=== PATIENT | female | born 1955 | race Caucasian/White ===

== ENCOUNTER 2018-12-25 15:21 | Inpatient (IN) | payer BC ==
[~2018-12-25] VITALS: Ht 162.6 cm; Wt 51.4 kg
[2018-12-25] MEDS ORDERED: CEFEPIME 2GM/50 ML (PMX) 50 ML IVPB STA (15:51)
[2018-12-25] MEDS ORDERED: SODIUM CHLORIDE 0.9% 1L BAG IV* STA (15:51)
[2018-12-25] MEDS ORDERED: VANCOMYCIN 1 GM (PMX) 250 ML IVPB ONE (16:00)
[2018-12-25] MEDS ORDERED: ASPIRIN 81 MG TAB PO ONE (16:30)
[2018-12-25] MEDS ORDERED: ACET325S GTB (16:35)
[2018-12-25] MEDS ORDERED: ALLO100T GTB (16:36)
[2018-12-25] MEDS ORDERED: ASPI-817 GTB (16:36)
[2018-12-25] MEDS ORDERED: DOCU-144 GTB (16:37)
[2018-12-25] MEDS ORDERED: CARV6.25 GTB (16:38)
[2018-12-25] MEDS ORDERED: DIGO125T19 GTB (16:39)
[2018-12-25] MEDS ORDERED: FURO-110 GTB (16:39)
[2018-12-25] MEDS ORDERED: MAGN400O19 GTB (16:40)
[2018-12-25] MEDS ORDERED: ATOR-2 GTB (16:40)
[2018-12-25] MEDS ORDERED: NITR0.4T32 SL (16:41)
[2018-12-25] MEDS ORDERED: HYDR-4011 GTB (16:42)
[2018-12-25] MEDS ORDERED: FAMO20TA18 GTB (16:42)
[2018-12-25] MEDS ORDERED: VIT500LI GTB (16:44)
[2018-12-25] MEDS ORDERED: LISI-523 GTB (16:45)
[2018-12-25] MEDS ORDERED: NOVO3I SC (16:48)
--- NOTE | 2018-12-25 17:34 | ERD ---
ER Documentation Chief Complaint Chief Complaint FROM [facility] FOR EVAL OF PRESSURE ULCER BUTTOCKS HPI 63-year-old female with prior stroke, left-sided hemiparesis who is a and O x2 at baseline presents from [facility] because of an evaluation of a pressure ulcer on her buttocks. It appears she is on antibiotics and the wound is not healing. The family is concerned that she was not getting appropriate care. The patient herself only describes some pain to her buttock. She denies any chest pain or shortness of breath and the remainder of HPI is very limited. The patient does not arrive with POLST form. No family immediately available. ROS Limited as above. Medications Home Meds Reported Medications Insulin Aspart* (Novolog Insulin Pen*) 100 Unit/Ml Soln, 0 SC .SLIDING SCALE AC, EA IF BS 200-250=2 UNITS, 251-300=4 UNITS, 301-350=6 UNITS, 351-400=8 UNITS, 401-450=10 UNITS, 451-500=12 UNITS AND CALL MD. 12/25/18 Lisinopril* (Zestril*) 5 Mg Tablet, 5 MG GTB DAILY, #30 TAB HOLD FOR SBP<110 OR VT<60 12/25/18 Vit C-Ascorbate Ca-Ascorb Sod (Vitamin C) 500 Mg/15 Ml Liquid, 5 ML GTB DAILY, ML 12/25/18 Famotidine* (Famotidine*) 20 Mg Tablet, 20 MG GTB QAM, #30 TAB 12/25/18 Hydrocodone/Acetaminophen ([place] 5-325 Tablet) 1 Each Tablet, 1 EACH GTB Q6H PRN for PAIN 6-10/10, TAB 12/25/18 Nitroglycerin* (Nitroglycerin* SL) 0.4 Mg Tab.subl, 0.4 MG SL Q5MIN PRN for CHEST PAIN, BOTTLE 12/25/18 Magnesium Hydroxide* (Milk Of Magnesia*) 400 Mg/5 Ml Oral.susp, 30 ML GTB Q24H for CONSTIPATION, ML 12/25/18 Atorvastatin* (Atorvastatin*) 80 Mg Tablet, 80 MG GTB QHS, #30 TAB 12/25/18 Furosemide* (Lasix*) 20 Mg Tablet, 20 MG GTB BID, TAB 12/25/18 Digoxin* (Digox*) 125 Mcg Tablet, 0.125 MG GTB DAILY, TAB HOLD FOR HR<60 12/25/18 Carvedilol* (Coreg*) 6.25 Mg Tablet, 6.25 MG GTB BID, #60 TAB HOLD FOR SBP<110 OR VT<60 12/25/18 Docusate Sodium* (Colace*) 100 Mg Capsule, 100 MG GTB Q12H PRN for CONSTIPATION, #30 CAP 12/25/18 Aspirin* (Aspirin* EC) 81 Mg Tablet.dr, 81 MG GTB DAILY, TAB 12/25/18 Allopurinol* (Allopurinol*) 100 Mg Tablet, 100 MG GTB BID, TAB 12/25/18 Acetaminophen* (Acetaminophen* Susp) 325 Mg/10.15 Ml Solution, 20 ML GTB Q4H PRN for PAIN LEVEL 1-5, ML 12/25/18 Allergies Allergies: Coded Allergies: No Known Allergy (Unverified , 12/25/18) PMhx/Soc Smoking Status: Never smoker FmHx Family History: No diabetes Physical Exam Vitals Vital Signs Date Temp Pulse Resp B/P (MAP) Pulse Ox O2 O2 Flow FiO2 Time Delivery Rate 12/25/18 100 22 120/67 97 Room Air 17:48 (84) 12/25/18 Nasal 2 16:23 Cannula 12/25/18 97.6 106 20 112/58 99 15:27 (76) Physical Exam General: Minimally verbal with evidence of left-sided hemiparesis that appears to be baseline Head: Normocephalic, atraumatic. Eyes: Pupils equally reactive, EOM intact ENT: Moist mucous membranes Neck: Supple, no lymphadenopathy Respiratory: Lungs clear bilaterally, no distress Cardiovascular: RRR, no murmurs, rubs, or gallops Abdominal: Soft, non-tender, non-distended, no peritoneal signs : Manager Project exam reveals a stage IV, golf ball sized sacral decubitus ulcer, base of the wound is well-appearing without drainage or discharge MSK: No edema, no unilateral swelling Neurologic: Alert and oriented, as noted above with left-sided hemiparesis Skin: As noted above Psych: Normal mood Result Diagram: 12/25/18 1607 12/25/18 1607 Results 24 hrs Laboratory Tests Test 12/25/18 16:07 12/25/18 16:15 White Blood Count 10.5 10^3/ul Red Blood Count 3.40 10^6/ul Hemoglobin 9.9 g/dl Hematocrit 31.0 % Mean Corpuscular Volume 91.2 fl Mean Corpuscular Hemoglobin 29.1 pg Mean Corpuscular Hemoglobin Concent 31.9 g/dl Red Cell Distribution Width 18.4 % Platelet Count 338 10^3/UL Mean Platelet Volume 11.1 fl Immature Granulocytes % 0.500 % Neutrophils % 58.0 % Lymphocytes % 29.9 % Monocytes % 8.4 % Eosinophils % 2.8 % Basophils % 0.4 % Nucleated Red Blood Cells % 0.0 /100WBC Immature Granulocytes # 0.050 10^3/ul Neutrophils # 6.1 10^3/ul Lymphocytes # 3.1 10^3/ul Monocytes # 0.9 10^3/ul Eosinophils # 0.3 10^3/ul Basophils # 0.0 10^3/ul Nucleated Red Blood Cells # 0.0 10^3/ul Prothrombin Time 13.1 Sec Prothrombin Time Ratio 1.0 INR International Normalized Ratio 0.98 Activated Partial Thromboplast Time 27.2 Sec Urine Color AP Urine Clarity CLOUDY Urine pH 6.0 Urine Specific [place] 1.019 Urine Ketones NEGATIVE mg/dL Urine Nitrite NEGATIVE mg/dL Urine Bilirubin NEGATIVE mg/dL Urine Urobilinogen 1+ mg/dL Urine Leukocyte Esterase 3+ Seth/ul Urine Microscopic RBC 34 /HPF Urine Microscopic WBC > 182 /HPF Urine Bacteria FEW /HPF Urine Hemoglobin 1+ mg/dL Urine Glucose NEGATIVE mg/dL Urine Total Protein 1+ mg/dl Sodium Level 142 mmol/L Potassium Level 3.4 mmol/L Chloride Level 96 mmol/L Carbon Dioxide Level 37 mmol/L Anion Gap 9 Blood Urea Nitrogen 40 mg/dl Creatinine 0.61 mg/dl Est Glomerular Filtrat Rate mL/min > 60 mL/min Glucose Level 142 mg/dl Calcium Level 10.0 mg/dl Troponin I 0.026 ng/ml C-Reactive Protein 3.2 mg/dl POC Venous Lactate 2.3 mmol/L Current Medications Medications Dose Sig/Erica Start Time Status Last (Trade) Ordered Route PRN Stop Time Admin Dose Reason Admin Sodium 1,800 ml BOLUS OVER 2 12/25/18 DC 12/25/18 Chloride HOURS STAT 15:51 16:25 (NS) IV* 12/25/18 15:53 Cefepime HCl 50 ml @ ONCE STAT 12/25/18 DC 12/25/18 100 mls/hr IVPB 15:51 16:30 12/25/18 16:20 Vancomycin 250 ml @ ONCE ONCE 12/25/18 DC 12/25/18 HCl 125 mls/hr IVPB 16:00 17:42 12/25/18 17:59 Aspirin 324 mg ONCE ONCE 12/25/18 DC 12/25/18 (Aspirin) PO 16:30 16:25 12/25/18 16:31 Enoxaparin 60 mg ONCE SC 12/25/18 Sodium 18:00 (Lovenox) Procedures/MDM EKG, MONITORS, & DIAGNOSTIC IMAGING: EKG #1 EKG: I reviewed and interpreted a 12-lead EKG. Rhythm: Normal sinus rhythm ST Changes: ST segment elevation noted in lead III, aVR, ST segment depression in 1 and aVL T waves: No contiguous T wave inversions Impression: Concerning ST segment changes for possible MT EKG #2 EKG: I reviewed and interpreted a 12-lead EKG. Rhythm: Normal sinus rhythm ST Changes: ST segment elevation noted in lead III, aVR, ST segment depression in 1 and aVL T waves: No contiguous T wave inversions Impression: Concerning ST segment changes for possible MT Chest x-ray: I reviewed and interpreted a 1 view of the chest Mediastinum: No enlargement Cardiac silhouette: No cardiomegaly Airspace: Clear lung rodas bilaterally without evidence of pneumothorax Bones: No evidence of fracture LAB INTERPRETATION: I reviewed the laboratory testing and it shows indeterminate troponin, elevated ESR and CRP slightly elevated lactic acid MEDICAL DECISION MAKING: The patient presents for evaluation of sacral decubitus ulcer, this raises a concern for possible osteomyelitis. Patient does have slight tachycardia, lactic acid is slightly elevated, sepsis screening initiated. It should be noted that the patient does not technically meet 2 out of 4 Sirs criteria in the emergency room setting. Therefore this is not consistent with sepsis. Lactic acid elevation possibly secondary to dehydration. IV fluids provided. The patient was however treated as sepsis with a 30/kg bolus of saline, broad-spectrum antibiotics. Repeat lactic acid pending. Blood cultures taken prior to antibiotics. The patient's initial EKG was abnormal and in the right setting very concerning for ST elevation myocardial infarction. The patient was reassessed multiple times and each time she denied any chest pain. An emergent phone call was made to Dr. Lazaro, on-call tax expert. We discussed the case and he reviewed EKGs. Given that the patient is hemodynamically stable with no active chest pain and Q waves on EKG Dr. Lazaro feels that the patient does not need to be emergently taken to the [facility]. Medical management will be appropriate. No old EKGs for comparisons. We did discuss Lovenox and he would agree. Troponin initially indeterminant. Dr. Lazaro was notified. Initial time of notification of Dr. Lazaro is 4:08 PM ER COURSE: * Fluids, blood cultures and antibiotics as discussed above * Aspirin per G-tube given EKG findings * Patient remains chest pain-free. Hemodynamics improving. * Lovenox provided. No absolute contraindications * Patient will be admitted to telemetry for further management. CONSULTATION: Cardiology: Dr. Lazaro DISPOSITION PLAN: Telemetry admission for management of decubitus ulcer, dehydration, lactic acidosis and abnormal EKG Accepting care team and consultations: I discussed the current laboratory data, diagnostic imaging and emergency care provided. Admitting team: Panel team notified via [employer] Admitting team indication: Insurance directed Departure Diagnosis: Primary Impression: Sacral decubitus ulcer Pressure injury stage: unspecified pressure injury stage Qualified Codes: L89.159 - Pressure ulcer of sacral region, unspecified stage Additional Impressions: Osteomyelitis Osteomyelitis type: unspecified type Osteomyelitis location: other site Q ualified Codes: M86.9 - Osteomyelitis, unspecified Lactic acidosis Dehydration, mild Abnormal EKG Condition: JERICA Siddiqui MD Dec 25, 2018 17:34
[2018-12-25] MEDS ORDERED: ENOXAPARIN 80 MG/0.8 ML SYG SC SCH (18:00)
[2018-12-25] MEDS ORDERED: ACETAMINOPHEN 650MG/20.3ML CUP GTB PRN (18:30)
[2018-12-25] MEDS ORDERED: ALBUTEROL/IPRATROPIUM (NEB) 3 ML AMP HHN PRN (18:30)
[2018-12-25] MEDS ORDERED: hydrALAzine 20 MG INJ IV PRN (18:30)
[2018-12-25] MEDS ORDERED: ONDANSETRON 4 MG INJ IV PRN ×2 (18:30)
[2018-12-25] MEDS ORDERED: NACL 0.9% 3 ML SYG IV SCH (18:30)
[2018-12-25] MEDS ORDERED: LORAZEPAM 2 MG INJ IV PRN (18:30)
[2018-12-25] MEDS ORDERED: HYDROCODONE/APAP (5/325) TAB PO PRN (18:30)
[2018-12-25] MEDS ORDERED: DOCUSATE SODIUM 100 MG CAP PO PRN (18:30)
[2018-12-25] MEDS ORDERED: NITROGLYCERIN (SL) 0.4 MG TAB SL PRN (18:30)
[2018-12-25] MEDS ORDERED: MAGNESIUM HYDROXIDE 30ML CUP PO PRN (18:30)
[2018-12-25] MEDS ORDERED: ACETAMINOPHEN 325 MG TAB PO PRN ×2 (18:30)
[2018-12-25] MEDS ORDERED: morphine 2 MG INJ IV PRN (18:30)
[2018-12-25] MEDS: MAGNESIUM HYDROXIDE 30ML CUP GTB SCH (18:30)
--- NOTE | 2018-12-25 19:32 | HP ---
DATE OF ADMISSION: 12/25/2018 CHIEF COMPLAINT: Sent from SNF for evaluation of buttock ulcers. HISTORY OF PRESENT ILLNESS: A 63-year-old female with past medical history based on records of prior stroke with left-sided weakness symptoms, likely high cholesterol, likely hypertension, likely diabe josh, history of G-tube placement, who was sent from [facility] facility today because of pressur e ulcer on her buttocks. Most of the information is obtained from the ER documentation as the patien t is unable to provide full HPI at this time. It was noted, however, that the family was concerned t he patient was not getting the proper care at the halfway facility and she apparently had bee n on antibiotics for the pressure ulcer wound in her buttocks, but the wound does not appear to be he aling. The patient did describe some positive pain symptoms in her buttock area. No chest pain or s hortness of breath. That is the full extent of the review of systems that could be obtained at this time. When the patient arrived, the white blood cell count was normal, but the ESR was elevated at 1 30. The potassium was a little bit low at 3.4 and patient did receive antibiotics in the ER, the [facility] ient also had an EKG performed that showed signs of possible ST elevation myocardial infarction and a call was made out to the on-call core checker, who recommended medical management at this time as the troponin is negative and the patient does not have any chest pain symptoms. The [facility] ient did get a dose of Lovenox 1 mg/kg as well. PAST MEDICAL HISTORY: As above. ALLERGIES: NO KNOWN DRUG ALLERGIES. HOME MEDICATIONS: 1. Atorvastatin 80 mg at bedtime. 2. Coreg 6.25 mg b.i.d. 3. Digoxin 0.125 mg daily. 4. Zestril 5 mg daily. 5. Nitroglycerin 0.4 mg sublingual every 5 minutes p.r.n. 6. Tylenol p.r.n. 7. Aspirin 81 mg daily. 8. [place] q.6 hours p.r.n. 9. Lasix 20 mg b.i.d. 10. Colace 100 mg q.12 hours p.r.n. 11. Famotidine 20 mg q.a.m. 12. Milk of magnesia q.24 hours p.r.n. 13. Aspart sliding scale insulin. 14. Vitamin C 5 mL daily. 15. Allopurinol 100 mg b.i.d. PAST SURGICAL HISTORY: History of G-tube placement. SOCIAL HISTORY: Negative for smoking or drinking, or IV drug abuse. FAMILY HISTORY: Noncontributory. PHYSICAL EXAMINATION: VITAL SIGNS: T-max 97.6, pulse 100 to 106, respirations 20 to 22, blood pressure is 120/67, satting at 97% room air. GENERAL: Patient is lying in bed, family members at the bedside, minimally verbally responsive. HEENT: Pupils are equal, round and reactive to light. Extraocular muscles intact. NECK: Supple, no thyromegaly. LUNGS: Clear to auscultation bilaterally. CARDIOVASCULAR: S1, S2 heard. No rubs or gallops. ABDOMEN: Soft, nontender and nondistended. G-tube in place. Normal bowel sounds. No rebound or gu arding. MUSCULOSKELETAL: No lower extremity edema bilaterally. NEUROLOGIC: She has got left-sided hemiparesis secondary to her stroke in the past. GENITOURINARY: There appears to be stage IV sacral decubitus ulcer. No drainage. LABORATORY DATA: CBC is normal. Basic metabolic panel is normal except the potassium 3.4. Venous l actic acid is 2.3 initially, repeat is 1.4. Troponin is 0.026, CRP is 3.2. UA shows 3+ leukocyte es terase positive. The patient had a chest x-ray, shows calcified aorta consistent with atheroscleroti c disease, mild left lower lobe linear atelectatic changes. ASSESSMENT AND PLAN: A 63-year-old female coming in with stage IV decubitus buttock ulcer that needs wound treatment, posi tive urinary tract infection, and possible signs of ST elevation myocardial infarction. 1. Positive sacral decubitus ulcer. We will get wound care consult. Continue broad spectrum antibi otics, may need to rule out for osteomyelitis. Given the staging of the ulcer. Consider imaging dung dies including MRI or x-ray of this area. Check TSH, A1c, lipid panel. Continue broad spectrum anti biotics, Tylenol p.r.n. pain and fevers. 2. Urinary tract infection. Again, we will continue broad spectrum antibiotics, low-dose IV fluids, Tylenol p.r.n. pain and fevers. Follow up final culture results. 3. Questionable ST elevation myocardial infarction. Again, this was on the EKG in the ER again per cardiology team. Medical management for now including Lovenox 1 mg/kg IV x1. We will trend her trop onins, rule her out officially for acute coronary syndrome. First troponin is negative. Follow up s econd and third. Consider 2D echocardiogram as well. 4. History of diabetes. Follow up A1c. Continue sliding scale insulin. 5. History of hypertension. Blood pressure stable. Continue current blood pressure medications. 6. History of high cholesterol. Follow up lipid panel. Continue statin. 7. GI prophylaxis, Pepcid via G-tube. 8. Deep venous thrombosis prophylaxis. Again, she did receive 1 dose of Lovenox after SCDs unless o therwise indicated. Consider speech therapy consult, PT and OT consults as well. Dictated By: MARI PRIEST/MARCELINO Conf#: [id number] DID#: [id number]
[2018-12-25] MEDS: ALLOPURINOL 100 MG TAB GTB SCH (23:30)
[2018-12-25] MEDS: ATORVASTATIN 80 MG TAB GTB SCH (23:30)
[2018-12-25] MEDS: FUROSEMIDE 20 MG TAB GTB SCH (23:30)
[2018-12-26] VITALS (13 sets, daily range): BP systolic 97–121; BP diastolic 52–72; PULSE 95–113; RESP 16–22; Ht 162.6 cm; Wt 51.4 kg
[2018-12-26] MEDS: PIPER-TAZO 3.375 GM IV (PMX) 100 ML IVPB SCH ×4 (00:47→17:38)
[2018-12-26] MEDS: ALLOPURINOL 100 MG TAB GTB SCH ×2 (09:36→21:32)
[2018-12-26] MEDS: LISINOPRIL 5 MG TAB GTB SCH (09:36)
[2018-12-26] MEDS: FAMOTIDINE 20 MG TAB GTB SCH (09:36)
[2018-12-26] MEDS: FUROSEMIDE 20 MG TAB GTB SCH ×2 (09:37→21:32)
--- NOTE | 2018-12-26 10:25 | PN ---
Date/Time of Note Date/Time of Note DATE: 12/26/18 TIME: 10:11 Assessment/Plan VTE Prophylaxis SCD applied (from Nsg): No SCD contraindicated: other Pharmacological prophylaxis: LMWH Lines/Catheters IV Catheter Type (from Nrsg): Saline Lock Urinary Cath still in place: Yes Reason Cath still needed: urinary retention Assessment/Plan Hospital Course S: Patient had no acute events overnight, but the troponin came back positive. Denies chest pain. O: VS- see below PHYSICAL EXAMINATION: GENERAL: lying in bed, minimally verbally responsive. HEENT: Pupils are equal, round and reactive to light. Extraocular muscles intact. NECK: Supple, no thyromegaly. LUNGS: Clear to auscultation bilaterally. CARDIOVASCULAR: S1, S2 heard. No rubs or gallops. ABDOMEN: Soft, nontender and nondistended. G-tube in place. Normal bowel sounds. No rebound or guarding. MUSCULOSKELETAL: No lower extremity edema bilaterally. NEUROLOGIC: She has got left-sided hemiparesis secondary to her stroke in the past. GENITOURINARY: + stage IV sacral decubitus ulcer. No drainage. ASSESSMENT AND PLAN: 63-year-old female coming in with stage IV decubitus buttock ulcer that needs wound treatment, positive urinary tract infection, and possible signs of ST elevation myocardial infarction. 1. Positive sacral decubitus ulcer-no drainage was noted on admission. - Awaiting wound care consult. - Continue broad spectrum antibiotics, may need to rule out for osteomyelit is. - Given the staging of the ulcer - consider imaging studies including MRI or x-ray of this area. Check TSH, A1c, lipid panel. Continue broad spectrum antibiotics, Tylenol p.r.n. pain and fevers. 2. Urinary tract infection: + UA found on admission. - Again, we will continue broad spectrum antibiotics, low-dose IV fluids, Tylenol p.r.n. pain and fevers. - Follow up final culture results. 3. Possible ST elevation myocardial infarction. Again, this was seen on the EKG on admission. Patient denied chest pain then and now per medical management for now including Lovenox 1 mg/kg IV x1. First 2 troponins were negative but third troponin is elevated. -We will continue to trend the troponins and obtain official cardiology consult -Start Lovenox 1 mg/kg subcu twice daily and follow-up echocardiogram results 4. History of diabetes- A1c = 6.5. Continue sliding scale insulin. 5. History of hypertension. Blood pressure stable. - Continue current blood pressure medications. 6. History of high cholesterol. - Follow up lipid panel. - Continue statin. 7. GI prophylaxis- Pepcid via G-tube. 8. Deep venous thrombosis prophylaxis-Lovenox Result Diagram: 12/26/18 0520 12/26/18 0520 Results 24hrs Laboratory Tests Test 12/25/18 16:07 12/25/18 16:15 12/25/18 16:30 12/25/18 16:31 White Blood Count 10.5 Red Blood Count 3.40 L Hemoglobin 9.9 L Hematocrit 31.0 L Mean Corpuscular 91.2 Volume Mean Corpuscular 29.1 Hemoglobin Mean Corpuscular 31.9 L Hemoglobin Concent Red Cell 18.4 H Distribution Width Platelet Count 338 Mean Platelet Volume 11.1 H Immature 0.500 H Granulocytes % Neutrophils % 58.0 Lymphocytes % 29.9 Monocytes % 8.4 Eosinophils % 2.8 Basophils % 0.4 Nucleated Red Blood 0.0 Cells % Immature 0.050 H Granulocytes # Neutrophils # 6.1 Lymphocytes # 3.1 H Monocytes # 0.9 Eosinophils # 0.3 Basophils # 0.0 Nucleated Red Blood 0.0 Cells # Prothrombin Time 13.1 Prothrombin Time 1.0 Ratio INR International 0.98 Normalized Ratio Activated 27.2 Partial Thromboplast Time Urine Color AP Urine Clarity CLOUDY A Urine pH 6.0 Urine Specific 1.019 [place] Urine Ketones NEGATIVE Urine Nitrite NEGATIVE Urine Bilirubin NEGATIVE Urine Urobilinogen 1+ H Urine Leukocyte 3+ H Esterase Urine Microscopic 34 H RBC Urine Microscopic > 182 H WBC Urine Bacteria FEW A Urine Hemoglobin 1+ H Urine Glucose NEGATIVE Urine Total Protein 1+ H Sodium Level 142 Potassium Level 3.4 L Chloride Level 96 L Carbon Dioxide Level 37 H Anion Gap 9 Blood Urea Nitrogen 40 H Creatinine 0.61 Est Glomerular > 60 Filtrat Rate mL/min Glucose Level 142 Calcium Level 10.0 Troponin I 0.026 C-Reactive Protein 3.2 H POC Venous Lactate 2.3 *H Free Thyroxine 2.25 Erythrocyte 130 H Sedimentation Rate Test 12/25/18 18:28 12/25/18 20:44 12/25/18 22:44 12/26/18 05:20 POC Venous Lactate 1.4 Lactic Acid Level 1.8 Creatine Kinase 39 39 Creatine Kinase 12.3 12.4 Index Creatinine Kinase MB 4.79 H 4.83 H (Mass) Troponin I 0.109 0.282 *H White Blood Count 7.8 # Red Blood Count 2.89 L Hemoglobin 8.3 L Hematocrit 26.5 L Mean Corpuscular 91.7 Volume Mean Corpuscular 28.7 L Hemoglobin Mean Corpuscular 31.3 L Hemoglobin Concent Red Cell 17.9 H Distribution Width Platelet Count 268 # Mean Platelet Volume 10.4 Immature 0.300 Granulocytes % Neutrophils % 55.0 Lymphocytes % 31.4 Monocytes % 8.2 Eosinophils % 4.6 Basophils % 0.5 Nucleated Red Blood 0.0 Cells % Immature 0.020 Granulocytes # Neutrophils # 4.3 Lymphocytes # 2.4 Monocytes # 0.6 Eosinophils # 0.4 Basophils # 0.0 Nucleated Red Blood 0.0 Cells # Sodium Level 142 Potassium Level 3.4 L Chloride Level 106 # Carbon Dioxide Level 31 Anion Gap 5 Blood Urea Nitrogen 26 #H Creatinine 0.52 Est Glomerular > 60 Filtrat Rate mL/min Glucose Level 107 Hemoglobin A1c 6.5 H Calcium Level 8.8 Phosphorus Level 4.0 Magnesium Level 2.0 Triglycerides Level 522 H Cholesterol Level 150 LDL Cholesterol, 26 Calculated HDL Cholesterol 20 L Cholesterol/HDL 7.5 Ratio Thyroid Stimulating 2.840 Hormone (TSH) Exam/Review of Systems Exam Vitals Vital Signs Date Temp Pulse Resp B/P (MAP) Pulse Ox O2 O2 Flow FiO2 Time Delivery Rate 12/26/18 100 08:31 12/26/18 98.9 18 115/66 98 07:11 (82) 12/26/18 2.0 06:05 12/26/18 Nasal 01:00 Cannula Intake and Output 12/25/18 12/25/18 12/26/18 1515:00 23:00 07:00 IntakeIntake Total 100 ml BalanceBalance 100 ml Results Results 24hrs Laboratory Tests Test 12/25/18 16:07 12/25/18 16:15 12/25/18 16:30 12/25/18 16:31 White Blood Count 10.5 Red Blood Count 3.40 L Hemoglobin 9.9 L Hematocrit 31.0 L Mean Corpuscular 91.2 Volume Mean Corpuscular 29.1 Hemoglobin Mean Corpuscular 31.9 L Hemoglobin Concent Red Cell 18.4 H Distribution Width Platelet Count 338 Mean Platelet Volume 11.1 H Immature 0.500 H Granulocytes % Neutrophils % 58.0 Lymphocytes % 29.9 Monocytes % 8.4 Eosinophils % 2.8 Basophils % 0.4 Nucleated Red Blood 0.0 Cells % Immature 0.050 H Granulocytes # Neutrophils # 6.1 Lymphocytes # 3.1 H Monocytes # 0.9 Eosinophils # 0.3 Basophils # 0.0 Nucleated Red Blood 0.0 Cells # Prothrombin Time 13.1 Prothrombin Time 1.0 Ratio INR International 0.98 Normalized Ratio Activated 27.2 Partial Thromboplast Time Urine Color AP Urine Clarity CLOUDY A Urine pH 6.0 Urine Specific 1.019 [place] Urine Ketones NEGATIVE Urine Nitrite NEGATIVE Urine Bilirubin NEGATIVE Urine Urobilinogen 1+ H Urine Leukocyte 3+ H Esterase Urine Microscopic 34 H RBC Urine Microscopic > 182 H WBC Urine Bacteria FEW A Urine Hemoglobin 1+ H Urine Glucose NEGATIVE Urine Total Protein 1+ H Sodium Level 142 Potassium Level 3.4 L Chloride Level 96 L Carbon Dioxide Level 37 H Anion Gap 9 Blood Urea Nitrogen 40 H Creatinine 0.61 Est Glomerular > 60 Filtrat Rate mL/min Glucose Level 142 Calcium Level 10.0 Troponin I 0.026 C-Reactive Protein 3.2 H POC Venous Lactate 2.3 *H Free Thyroxine 2.25 Erythrocyte 130 H Sedimentation Rate Test 12/25/18 18:28 12/25/18 20:44 12/25/18 22:44 12/26/18 05:20 POC Venous Lactate 1.4 Lactic Acid Level 1.8 Creatine Kinase 39 39 Creatine Kinase 12.3 12.4 Index Creatinine Kinase MB 4.79 H 4.83 H (Mass) Troponin I 0.109 0.282 *H White Blood Count 7.8 # Red Blood Count 2.89 L Hemoglobin 8.3 L Hematocrit 26.5 L Mean Corpuscular 91.7 Volume Mean Corpuscular 28.7 L Hemoglobin Mean Corpuscular 31.3 L Hemoglobin Concent Red Cell 17.9 H Distribution Width Platelet Count 268 # Mean Platelet Volume 10.4 Immature 0.300 Granulocytes % Neutrophils % 55.0 Lymphocytes % 31.4 Monocytes % 8.2 Eosinophils % 4.6 Basophils % 0.5 Nucleated Red Blood 0.0 Cells % Immature 0.020 Granulocytes # Neutrophils # 4.3 Lymphocytes # 2.4 Monocytes # 0.6 Eosinophils # 0.4 Basophils # 0.0 Nucleated Red Blood 0.0 Cells # Sodium Level 142 Potassium Level 3.4 L Chloride Level 106 # Carbon Dioxide Level 31 Anion Gap 5 Blood Urea Nitrogen 26 #H Creatinine 0.52 Est Glomerular > 60 Filtrat Rate mL/min Glucose Level 107 Hemoglobin A1c 6.5 H Calcium Level 8.8 Phosphorus Level 4.0 Magnesium Level 2.0 Triglycerides Level 522 H Cholesterol Level 150 LDL Cholesterol, 26 Calculated HDL Cholesterol 20 L Cholesterol/HDL 7.5 Ratio Thyroid Stimulating 2.840 Hormone (TSH) Medications Medication Current Medications Enoxaparin Sodium (Lovenox) 60 mg ONCE SC Last administered on 12/25/18at 18:00; Admin Dose 60 MG; Start 12/25/18 at 18:00 Ondansetron HCl (Zofran Inj) 4 mg ER BRIDGE PRN IV NAUSEA/VOMITING; Start 12/25/18 at 18:30; Stop 12/26/18 at 18:29 Acetaminophen (Tylenol Tab) 650 mg ER BRIDGE PRN PO .MILD PAIN 1-3 OR TEMP; Start 12/25/18 at 18:30; Stop 12/26/18 at 18:29 IV Flush (NS 3 ml) 3 ml PER PROTOCOL IV ; Start 12/25/18 at 18:30 Ondansetron HCl (Zofran Inj) 4 mg Q6H PRN IV NAUSEA/VOMITING; Start 12/25/18 at 18:30 Acetaminophen (Tylenol Tab) 650 mg Q6H PRN PO .PAIN 1-3 OR TEMP; Start 12/25/18 at 18:30 Acetaminophen/ Hydrocodone Bitart ([place] (5/325)) 1 tab Q6H PRN PO .MOD PAIN 4- 6 Last administered on 12/25/18at 19:35; Admin Dose 1 TAB; Start 12/25/18 at 18:30 Morphine Sulfate (morphine) 2 mg Q4H PRN IV .SEVERE PAIN 7-10; Start 12/25/18 at 18:30 Docusate Sodium (Colace) 100 mg Q12H PRN PO .CONSTIPATION; Start 12/25/18 at 18:30 Magnesium Hydroxide (Milk Of Mag) 30 ml DAILY PRN PO .CONSTIPATION; Start 12/25/18 at 18:30 Lorazepam (Ativan) 0.5 mg Q6H PRN IV ANXIETY; Start 12/25/18 at 18:30 Albuterol/ Ipratropium (Duoneb) 3 ml Q4H RESP THERAPY PRN HHN SHORTNESS OF BREATH; Start 12/25/18 at 18:30 Piperacillin Sod/ Tazobactam Sod 100 ml @ 200 mls/hr Q6 IVPB Last administered on 12/26/18at 06:08; Admin Dose 200 MLS/HR; Start 12/26/18 at 00:00 Hydralazine HCl (Apresoline) 10 mg Q6H PRN IV ELEVATED BLOOD PRESSURE; Start 12/25/18 at 18:30 Nitroglycerin (Nitroglycerin (Sl Tab) 0.4 Mg) 1 tab Q5M PRN SL ANGINA; Start 12/25/18 at 18:30 Acetaminophen (Tylenol Liquid) 650 mg Q4H PRN GTB PAIN LEVEL 1-5; Start 12/25/18 at 18:30 Allopurinol (Zyloprim) 100 mg BID GTB Last administered on 12/26/18at 09:36; Admin Dose 100 MG; Start 12/25/18 at 21:00 Atorvastatin Calcium (Lipitor) 80 mg QHS GTB Last administered on 12/25/18at 23:30; Admin Dose 80 MG; Start 12/25/18 at 21:00 Carvedilol (Coreg) 6.25 mg BID GTB Last administered on 12/26/18 09:37; Admin Dose 6.25 MG; Start 12/25/18 at 21:00 Digoxin (Digoxin) 0.125 mg DAILY@1300 GTB ; Start 12/26/18 at 13:00 Famotidine (Pepcid) 20 mg QAM GTB Last administered on 12/26/18at 09:36; Admin Dose 20 MG; Start 12/26/18 at 09:00 Furosemide (Lasix) 20 mg BID GTB Last administered on 12/26/18 09:37; Admin Dose 20 MG; Start 12/25/18 at 21:00 Lisinopril (Zestril) 5 mg DAILY GTB Last administered on 12/26/18 09:36; Admin Dose 5 MG; Start 12/26/18 at 09:00 Magnesium Hydroxide (Milk Of Mag) 30 ml Q24H GTB ; Start 12/25/18 at 18:30 Ascorbic Acid (Vitamin C) 500 mg DAILY GTB ; Start 12/26/18 at 10:00 MARI ESPITIA Dec 26, 2018 10:25
[2018-12-26] MEDS ORDERED: ENOXAPARIN 60 MG/0.6 ML SYG SC SCH (10:30)
--- NOTE | 2018-12-26 11:10 | CONS ---
Assessment/Plan Assessment/Plan Hospital Course (Demo Recall) NSTEMI: EKG showed q waves and inferior ST elevations which may be from an old DE and aneurysmal changes. Her medication list suggests she may have CAD and cardiomyopathy. Trop peaked at 0.28 and is not consistent with ACS in setting of lack of symptoms. Possible type II from underlying CAD and infections etiologies. Not a cardiac cath candidate at this time. UTI Possible osteomyelitis of sacral decubitus Likely ischemic cardiomyopathy: unknown EF. Euvolemic on exam h/o CVA with left hemiparesis DM HTN -d/c therapeutic lovenox especially with hgb trending down -ASA ok for now unless active bleeding -lipitor 80mg -coreg 6.25mg BID -digoxin 125mcg daily (?for cardiomyopathy vs afib but pt in sinus) -lisinopril 5mg -lasix 20mg PO BID -antibiotics, would care -f/u echo Consultation Date/Type/Reason Admit Date/Time Dec 25, 2018 at 18:05 Date of Consultation: Dec 26, 2018 Type of Consult Cardiology Reason for Consultation NSTEMI Requesting Provider: MARI ESPITIA Date/Time of Note DATE: 12/26/18 TIME: 11:10 Hx of Present Illness 63 yo F with a h/o CVA with left hemiparesis, ?CAD/ischemic cardiomyopathy (meds suggestive), paroxysmal afib vs digoxin for cardiomyopathy, DM, HTN, decubitus ulcer who was brought in from her SNF due to sacral pain, nonhealing ulcer, and family concerns for pt not being cared for appropriately. On admission EKG was concerning for ST elevations inferiorly but the patient was asymptomatic and the transportation project manager plant care worker determined that she did not need urgent cardiac cath. Since then her troponin has increased and peaked at 0.28. The pt speaks English and is able to verbalize that she does not have any chest pain or SOB. She does have some sacral pain. She was started on therapeutic lovenox since admission. Her hgb has trended from 9.9 to 8.3. No bleeding. ESR 130 and concern for osteo. Also being treated for UTI. per HPI, limited Past Medical History per HPI Home Meds Reported Medications Insulin Aspart* (Novolog Insulin Pen*) 100 Unit/Ml Soln, 0 SC .SLIDING SCALE AC, EA IF BS 200-250=2 UNITS, 251-300=4 UNITS, 301-350=6 UNITS, 351-400=8 UNITS, 401-450=10 UNITS, 451-500=12 UNITS AND CALL MD. 12/25/18 Lisinopril* (Zestril*) 5 Mg Tablet, 5 MG GTB DAILY, #30 TAB HOLD FOR SBP<110 OR ND<60 12/25/18 Vit C-Ascorbate Ca-Ascorb Sod (Vitamin C) 500 Mg/15 Ml Liquid, 5 ML GTB DAILY, ML 12/25/18 Famotidine* (Famotidine*) 20 Mg Tablet, 20 MG GTB QAM, #30 TAB 12/25/18 Hydrocodone/Acetaminophen ([place] 5-325 Tablet) 1 Each Tablet, 1 EACH GTB Q6H PRN for PAIN 6-06/12, TAB 12/25/18 Nitroglycerin* (Nitroglycerin* SL) 0.4 Mg Tab.subl, 0.4 MG SL Q5MIN PRN for CHEST PAIN, BOTTLE 12/25/18 Magnesium Hydroxide* (Milk Of Magnesia*) 400 Mg/5 Ml Oral.susp, 30 ML GTB Q24H for CONSTIPATION, ML 12/25/18 Atorvastatin* (Atorvastatin*) 80 Mg Tablet, 80 MG GTB QHS, #30 TAB 12/25/18 Furosemide* (Lasix*) 20 Mg Tablet, 20 MG GTB BID, TAB 12/25/18 Digoxin* (Digox*) 125 Mcg Tablet, 0.125 MG GTB DAILY, TAB HOLD FOR HR<60 12/25/18 Carvedilol* (Coreg*) 6.25 Mg Tablet, 6.25 MG GTB BID, #60 TAB HOLD FOR SBP<110 OR ND<60 12/25/18 Docusate Sodium* (Colace*) 100 Mg Capsule, 100 MG GTB Q12H PRN for CONSTIPATION, #30 CAP 12/25/18 Aspirin* (Aspirin* EC) 81 Mg Tablet.dr, 81 MG GTB DAILY, TAB 12/25/18 Allopurinol* (Allopurinol*) 100 Mg Tablet, 100 MG GTB BID, TAB 12/25/18 Acetaminophen* (Acetaminophen* Susp) 325 Mg/10.15 Ml Solution, 20 ML GTB Q4H PRN for PAIN LEVEL 1-5, ML 12/25/18 Medications Current Medications IV Flush (NS 3 ml) 3 ml PER PROTOCOL IV ; Start 12/25/18 at 18:30 Ondansetron HCl (Zofran Inj) 4 mg Q6H PRN IV NAUSEA/VOMITING; Start 12/25/18 at 18:30 Acetaminophen (Tylenol Tab) 650 mg Q6H PRN PO .PAIN 1-3 OR TEMP; Start 12/25/18 at 18:30 Acetaminophen/ Hydrocodone Bitart ([place] (5/325)) 1 tab Q6H PRN PO .MOD PAIN 4- 6 Last administered on 12/25/18at 19:35; Admin Dose 1 TAB; Start 12/25/18 at 18:30 Morphine Sulfate (morphine) 2 mg Q4H PRN IV .SEVERE PAIN 7-10; Start 12/25/18 at 18:30 Docusate Sodium (Colace) 100 mg Q12H PRN PO .CONSTIPATION; Start 12/25/18 at 18:30 Magnesium Hydroxide (Milk Of Mag) 30 ml DAILY PRN PO .CONSTIPATION; Start 12/25/18 at 18:30 Lorazepam (Ativan) 0.5 mg Q6H PRN IV ANXIETY; Start 12/25/18 at 18:30 Albuterol/ Ipratropium (Duoneb) 3 ml Q4H RESP THERAPY PRN HHN SHORTNESS OF BREATH; Start 12/25/18 at 18:30 Piperacillin Sod/ Tazobactam Sod 100 ml @ 200 mls/hr Q6 IVPB Last administered on 12/26/18at 06:08; Admin Dose 200 MLS/HR; Start 12/26/18 at 00:00 Hydralazine HCl (Apresoline) 10 mg Q6H PRN IV ELEVATED BLOOD PRESSURE; Start 12/25/18 at 18:30 Nitroglycerin (Nitroglycerin (Sl Tab) 0.4 Mg) 1 tab Q5M PRN SL ANGINA; Start 12/25/18 at 18:30 Acetaminophen (Tylenol Liquid) 650 mg Q4H PRN GTB PAIN LEVEL 1-5; Start 12/25/18 at 18:30 Allopurinol (Zyloprim) 100 mg BID GTB Last administered on 12/26/18at 09:36; Admin Dose 100 MG; Start 12/25/18 at 21:00 Atorvastatin Calcium (Lipitor) 80 mg QHS GTB Last administered on 12/25/18at 23:30; Admin Dose 80 MG; Start 12/25/18 at 21:00 Carvedilol (Coreg) 6.25 mg BID GTB Last administered on 12/26/18at 09:37; Admin Dose 6.25 MG; Start 12/25/18 at 21:00 Digoxin (Digoxin) 0.125 mg DAILY@1300 GTB ; Start 12/26/18 at 13:00 Famotidine (Pepcid) 20 mg QAM GTB Last administered on 12/26/18at 09:36; Admin Dose 20 MG; Start 12/26/18 at 09:00 Furosemide (Lasix) 20 mg BID GTB Last administered on 12/26/18 09:37; Admin Dose 20 MG; Start 12/25/18 at 21:00 Lisinopril (Zestril) 5 mg DAILY GTB Last administered on 12/26/18at 09:36; Admin Dose 5 MG; Start 12/26/18 at 09:00 Magnesium Hydroxide (Milk Of Mag) 30 ml Q24H GTB ; Start 12/25/18 at 18:30 Ascorbic Acid (Vitamin C) 500 mg DAILY GTB ; Start 12/26/18 at 10:00 Enoxaparin Sodium (Lovenox) 50 mg Q12 SC ; Start 12/26/18 at 10:30 Allergies: Coded Allergies: No Known Allergy (Unverified , 12/25/18) Social History Smoking Status: Unknown if ever smoked Exam/Review of Systems Vital Signs Vitals Vital Signs Date Temp Pulse Resp B/P (MAP) Pulse Ox O2 O2 Flow FiO2 Time Delivery Rate 12/26/18 100 08:31 12/26/18 98.9 18 115/66 98 07:11 (82) 12/26/18 2.0 06:05 12/26/18 Nasal 01:00 Cannula Intake and Output 12/25/18 12/25/18 12/26/18 1515:00 23:00 07:00 IntakeIntake Total 100 ml BalanceBalance 100 ml Exam Constitutional: alert Psych: no complaints Head: normocephalic, atraumatic Neck: No jvd Respiratory: diminished breath sounds; No clear to auscultation Cardiovascular: regular rate and rhythm; No edema, No systolic murmur Gastrointestinal: soft, non-tender; No distended Musculoskeletal: No nl extremities to inspection Neurological: nl mental status; No nl speech, No nl strength Additional Comments EKG: sinus, q waves and ST elevation leads III and aVF, ST depression lateral leads Labs Result Diagram: 12/26/18 0520 12/26/18 0520 Results 24hrs Laboratory Tests Test 12/25/18 16:07 12/25/18 16:15 12/25/18 16:30 12/25/18 16:31 White Blood Count 10.5 Red Blood Count 3.40 L Hemoglobin 9.9 L Hematocrit 31.0 L Mean Corpuscular 91.2 Volume Mean Corpuscular 29.1 Hemoglobin Mean Corpuscular 31.9 L Hemoglobin Concent Red Cell 18.4 H Distribution Width Platelet Count 338 Mean Platelet Volume 11.1 H Immature 0.500 H Granulocytes % Neutrophils % 58.0 Lymphocytes % 29.9 Monocytes % 8.4 Eosinophils % 2.8 Basophils % 0.4 Nucleated Red Blood 0.0 Cells % Immature 0.050 H Granulocytes # Neutrophils # 6.1 Lymphocytes # 3.1 H Monocytes # 0.9 Eosinophils # 0.3 Basophils # 0.0 Nucleated Red Blood 0.0 Cells # Prothrombin Time 13.1 Prothrombin Time 1.0 Ratio INR International 0.98 Normalized Ratio Activated 27.2 Partial Thromboplast Time Urine Color AP Urine Clarity CLOUDY A Urine pH 6.0 Urine Specific 1.019 [place] Urine Ketones NEGATIVE Urine Nitrite NEGATIVE Urine Bilirubin NEGATIVE Urine Urobilinogen 1+ H Urine Leukocyte 3+ H Esterase Urine Microscopic 34 H RBC Urine Microscopic > 182 H WBC Urine Bacteria FEW A Urine Hemoglobin 1+ H Urine Glucose NEGATIVE Urine Total Protein 1+ H Sodium Level 142 Potassium Level 3.4 L Chloride Level 96 L Carbon Dioxide Level 37 H Anion Gap 9 Blood Urea Nitrogen 40 H Creatinine 0.61 Est Glomerular > 60 Filtrat Rate mL/min Glucose Level 142 Calcium Level 10.0 Troponin I 0.026 C-Reactive Protein 3.2 H POC Venous Lactate 2.3 *H Free Thyroxine 2.25 Erythrocyte 130 H Sedimentation Rate Test 12/25/18 18:28 12/25/18 20:44 12/25/18 22:44 12/26/18 05:20 POC Venous Lactate 1.4 Lactic Acid Level 1.8 Creatine Kinase 39 39 Creatine Kinase 12.3 12.4 Index Creatinine Kinase MB 4.79 H 4.83 H (Mass) Troponin I 0.109 0.282 *H White Blood Count 7.8 # Red Blood Count 2.89 L Hemoglobin 8.3 L Hematocrit 26.5 L Mean Corpuscular 91.7 Volume Mean Corpuscular 28.7 L Hemoglobin Mean Corpuscular 31.3 L Hemoglobin Concent Red Cell 17.9 H Distribution Width Platelet Count 268 # Mean Platelet Volume 10.4 Immature 0.300 Granulocytes % Neutrophils % 55.0 Lymphocytes % 31.4 Monocytes % 8.2 Eosinophils % 4.6 Basophils % 0.5 Nucleated Red Blood 0.0 Cells % Immature 0.020 Granulocytes # Neutrophils # 4.3 Lymphocytes # 2.4 Monocytes # 0.6 Eosinophils # 0.4 Basophils # 0.0 Nucleated Red Blood 0.0 Cells # Sodium Level 142 Potassium Level 3.4 L Chloride Level 106 # Carbon Dioxide Level 31 Anion Gap 5 Blood Urea Nitrogen 26 #H Creatinine 0.52 Est Glomerular > 60 Filtrat Rate mL/min Glucose Level 107 Hemoglobin A1c 6.5 H Calcium Level 8.8 Phosphorus Level 4.0 Magnesium Level 2.0 Triglycerides Level 522 H Cholesterol Level 150 LDL Cholesterol, 26 Calculated HDL Cholesterol 20 L Cholesterol/HDL 7.5 Ratio Thyroid Stimulating 2.840 Hormone (TSH) Medications Medications Current Medications IV Flush (NS 3 ml) 3 ml PER PROTOCOL IV ; Start 12/25/18 at 18:30 Ondansetron HCl (Zofran Inj) 4 mg Q6H PRN IV NAUSEA/VOMITING; Start 12/25/18 at 18:30 Acetaminophen (Tylenol Tab) 650 mg Q6H PRN PO .PAIN 1-3 OR TEMP; Start 12/25/18 at 18:30 Acetaminophen/ Hydrocodone Bitart ([place] (5/325)) 1 tab Q6H PRN PO .MOD PAIN 4- 6 Last administered on 12/25/18at 19:35; Admin Dose 1 TAB; Start 12/25/18 at 18:30 Morphine Sulfate (morphine) 2 mg Q4H PRN IV .SEVERE PAIN 7-10; Start 12/25/18 at 18:30 Docusate Sodium (Colace) 100 mg Q12H PRN PO .CONSTIPATION; Start 12/25/18 at 18:30 Magnesium Hydroxide (Milk Of Mag) 30 ml DAILY PRN PO .CONSTIPATION; Start 12/25/18 at 18:30 Lorazepam (Ativan) 0.5 mg Q6H PRN IV ANXIETY; Start 12/25/18 at 18:30 Albuterol/ Ipratropium (Duoneb) 3 ml Q4H RESP THERAPY PRN HHN SHORTNESS OF BREATH; Start 12/25/18 at 18:30 Piperacillin Sod/ Tazobactam Sod 100 ml @ 200 mls/hr Q6 IVPB Last administered on 12/26/18at 06:08; Admin Dose 200 MLS/HR; Start 12/26/18 at 00:00 Hydralazine HCl (Apresoline) 10 mg Q6H PRN IV ELEVATED BLOOD PRESSURE; Start 12/25/18 at 18:30 Nitroglycerin (Nitroglycerin (Sl Tab) 0.4 Mg) 1 tab Q5M PRN SL ANGINA; Start 12/25/18 at 18:30 Acetaminophen (Tylenol Liquid) 650 mg Q4H PRN GTB PAIN LEVEL 1-5; Start 12/25/18 at 18:30 Allopurinol (Zyloprim) 100 mg BID GTB Last administered on 12/26/18 09:36; Admin Dose 100 MG; Start 12/25/18 at 21:00 Atorvastatin Calcium (Lipitor) 80 mg QHS GTB Last administered on 12/25/18at 23:30; Admin Dose 80 MG; Start 12/25/18 at 21:00 Carvedilol (Coreg) 6.25 mg BID GTB Last administered on 12/26/18at 09:37; Admin Dose 6.25 MG; Start 12/25/18 at 21:00 Digoxin (Digoxin) 0.125 mg DAILY@1300 GTB ; Start 12/26/18 at 13:00 Famotidine (Pepcid) 20 mg QAM GTB Last administered on 12/26/18 09:36; Admin Dose 20 MG; Start 12/26/18 at 09:00 Furosemide (Lasix) 20 mg BID GTB Last administered on 12/26/18 09:37; Admin Dose 20 MG; Start 12/25/18 at 21:00 Lisinopril (Zestril) 5 mg DAILY GTB Last administered on 12/26/18 09:36; Admin Dose 5 MG; Start 12/26/18 at 09:00 Magnesium Hydroxide (Milk Of Mag) 30 ml Q24H GTB ; Start 12/25/18 at 18:30 Ascorbic Acid (Vitamin C) 500 mg DAILY GTB ; Start 12/26/18 at 10:00 Enoxaparin Sodium (Lovenox) 50 mg Q12 SC ; Start 12/26/18 at 10:30 TIMO VELAZQUEZ Dec 26, 2018 11:10
[2018-12-26] MEDS: DIGOXIN 0.125 MG TAB GTB SCH (13:16)
[2018-12-26] MEDS: DAKINS 0.0125%(1/40) 473 ML SOLUTION TP SCH ×2 (16:00→21:50)
[2018-12-26] MEDS: ASCORBIC ACID 500 MG TAB GTB SCH (17:35)
[2018-12-26] MEDS: MAGNESIUM HYDROXIDE 30ML CUP GTB SCH (17:35)
--- NOTE | 2018-12-26 17:37 | RADRPT ---
Echocardiogram Report Patient Name: Gian RAHMAN ID: [id number] : 1955 (64y )Study Date: 12/26/2018 11:31:56 AM Gender: FAccession #: [id number] Tech: Gregg Gordon [facility] Location: 2-A Ref.Physician: TIMO BHAT Height(Cm): BSA: Weight(Kg): Quality: AdequateAccount #: Procedures: Echocardiographic Report: Transthoracic echocardiogram with complete 2D, M-Mode, and doppler examination. Indications: NSTEMI. Measurements: 2D/M Mode Doppler Measurement Value Normal Range Measurement Value Normal Range LVIDd 2D 4.5 [ 3.8 - 5.2 ] cm AV Peak Haja 1.6 [ 100.0 - 170.0 ] cm/sec LVIDs 2D 3.3 [ 2.2 - 3.5 ] cm AV Peak PG 10.0 [ 2.0 - 9.0 ] mmHg LVPWd 2D 1.2 [ 0.6 - 0.9 ] cm LVOT Peak Haja 0.8 [ 70.0 - 110.0 ] cm/sec IVSd 2D 1.5 [ 0.6 - 0.9 ] cm LVOT Peak PG 3.0 [ 2.0 - 6.0 ] mmHg AoR Diam 2D 3.0 [ 2.3 - 3.1 ] cm MV E Peak Haja 1.4 [ 60.0 - 130.0 ] cm/sec EDV 2D 93.9 [ 46.0 - 106.0 ] ml MV A Peak Haja 0.4 [ 100.0 - 120.0 ] cm/sec ESV 2D 45.8 [ 14.0 - 42.0 ] ml MV E/A 3.8 [ 0.8 - 1.5 ] ratio EF 2D 51.2 [ 54.0 - 74.0 ] percent MV Decel Time 162 [ 104 - 258 ] msec LA Dimen 2D 4.0 [ 2.7 - 3.8 ] cm Lat E` Haja 0.1 [ 10.0 - 15.0 ] cm/sec Lateral E/E` 13.1 [ 1.0 - 2.0 ] ratio MV E/A 3.8 [ 0.8 - 1.5 ] ratio TR Peak Haja 2.0 [ 100.0 - 280.0 ] cm/sec TR Peak PG 15.0 mmHg RVSP 18.0 [ 10.0 - 36.0 ] mmHg Findings: Left Ventricle: Normal left ventricular cavity size. Sigmoid septum. Mild left ventricular systolic dysfunction. Ejection fraction is visually estimated at 45 %. 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 Right Ventricle: Normal right ventricular size. Normal right ventricular systolic function. Left Atrium: There is mild enlargement of left atrium. Right Atrium: The right atrium is normal in size. Mitral Valve: Moderate posterior mitral annular calcification. Mild to moderate eccentric mitral valve regurgitation. Aortic Valve: Aortic sclerosis without significant stenosis. No aortic regurgitation. Tricuspid Valve: Normal appearance of the tricuspid valve. Estimated peak PA systolic pressure 18 mmHg. There is trace tricuspid regurgitation. Pericardium: Normal pericardium with no significant pericardial effusion. Aorta: Normal aortic root. IVC: Normal size and normal respiratory collapse consistent with normal right atrial pressure. Conclusions: Normal left ventricular cavity size. Sigmoid septum. Mild left ventricular systolic dysfunction. Ejection fraction is visually estimated at 45 %. 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 Moderate posterior mitral annular calcification. Mild to moderate eccentric mitral valve regurgitation. Estimated peak PA systolic pressure 18 mmHg. Normal size and normal respiratory collapse consistent with normal right atrial pressure. Electronically Signed By: Timo Bhat 2018-12-26 17:36:33 PDT
[2018-12-26] MEDS: ATORVASTATIN 80 MG TAB GTB SCH (21:32)
[2018-12-27] VITALS (10 sets, daily range): BP systolic 112–128; BP diastolic 56–74; PULSE 92–102; RESP 18
[2018-12-27] MEDS: PIPER-TAZO 3.375 GM IV (PMX) 100 ML IVPB SCH ×4 (00:50→18:15)
[2018-12-27] MEDS: ASPIRIN 81 MG TAB PO SCH (09:07)
[2018-12-27] MEDS: ASCORBIC ACID 500 MG TAB GTB SCH (09:07)
[2018-12-27] MEDS: FUROSEMIDE 20 MG TAB GTB SCH ×2 (09:07→21:30)
[2018-12-27] MEDS: FAMOTIDINE 20 MG TAB GTB SCH (09:07)
[2018-12-27] MEDS: LISINOPRIL 5 MG TAB GTB SCH (09:07)
[2018-12-27] MEDS: DAKINS 0.0125%(1/40) 473 ML SOLUTION TP SCH ×2 (09:08→21:31)
[2018-12-27] MEDS: ALLOPURINOL 100 MG TAB GTB SCH ×2 (09:08→21:29)
--- NOTE | 2018-12-27 10:12 | CONS ---
Assessment/Plan Assessment/Plan Hospital Course (Demo Recall) NSTEMI: EKG showed q waves and inferior ST elevations which are from an old IN and aneurysmal changes. Trop peaked at 0.28 and is not consistent with ACS in setting of lack of symptoms. Possible type II from underlying CAD and infections etiologies. Not a cardiac cath candidate at this time. 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 Euvolemic on exam h/o CVA with left hemiparesis DM HTN -ASA -lipitor 80mg -coreg 6.25mg BID -digoxin 125mcg daily (?for cardiomyopathy vs afib but pt in sinus) -lisinopril 5mg -lasix 20mg PO BID -antibiotics, would care Consultation Date/Type/Reason Admit Date/Time Dec 25, 2018 at 18:05 Initial Consult Date 12/26/18 Type of Consult Cardiology Requesting Provider: MARI ESPITIA Date/Time of Note DATE: 12/27/18 TIME: 10:10 24 HR Interval Summary Free Text/Dictation No events. No chest pain Exam/Review of Systems Vital Signs Vitals Vital Signs Date Temp Pulse Resp B/P (MAP) Pulse Ox O2 O2 Flow FiO2 Time Delivery Rate 12/27/18 102 08:53 12/27/18 99.1 18 112/64 98 08:05 (80) 12/26/18 2.0 23:53 12/26/18 Nasal 11:14 Cannula Intake and Output 12/26/18 12/26/18 12/27/18 1515:00 23:00 07:00 IntakeIntake Total 720 ml 100 ml OutputOutput Total 1600 ml 1201 ml BalanceBalance -880 ml -1101 ml Exam Constitutional: alert, oriented Psych: no complaints, nl mood/affect Head: normocephalic, atraumatic Neck: No jvd Respiratory: diminished breath sounds; No clear to auscultation Cardiovascular: regular rate and rhythm; No edema Gastrointestinal: soft, non-tender; No distended Neurological: nl mental status; No nl speech Labs Result Diagram: 12/27/18 0512 12/27/18 0512 Results 24hrs Laboratory Tests Test 12/26/18 10:40 12/26/18 15:51 12/27/18 05:12 Troponin I 0.238 *H 0.156 *H White Blood Count 8.7 Red Blood Count 2.81 L Hemoglobin 8.2 L Hematocrit 25.4 L Mean Corpuscular Volume 90.4 Mean Corpuscular Hemoglobin 29.2 Mean Corpuscular Hemoglobin Concent 32.3 Red Cell Distribution Width 17.5 H Platelet Count 283 Mean Platelet Volume 10.3 Immature Granulocytes % 0.300 Neutrophils % 51.1 Lymphocytes % 35.7 Monocytes % 8.3 Eosinophils % 4.3 Basophils % 0.3 Nucleated Red Blood Cells % 0.0 Immature Granulocytes # 0.030 Neutrophils # 4.4 Lymphocytes # 3.1 H Monocytes # 0.7 Eosinophils # 0.4 Basophils # 0.0 Nucleated Red Blood Cells # 0.0 Sodium Level 139 Potassium Level 3.5 Chloride Level 99 Carbon Dioxide Level 29 Anion Gap 11 Blood Urea Nitrogen 24 H Creatinine 0.52 Est Glomerular Filtrat Rate mL/min > 60 Glucose Level 184 Calcium Level 8.6 Medications Medications Current Medications IV Flush (NS 3 ml) 3 ml PER PROTOCOL IV ; Start 12/25/18 at 18:30 Ondansetron HCl (Zofran Inj) 4 mg Q6H PRN IV NAUSEA/VOMITING; Start 12/25/18 at 18:30 Acetaminophen (Tylenol Tab) 650 mg Q6H PRN PO .PAIN 1-3 OR TEMP; Start 12/25/18 at 18:30 Acetaminophen/ Hydrocodone Bitart ([place] (5/325)) 1 tab Q6H PRN PO .MOD PAIN 4- 6 Last administered on 12/25/18at 19:35; Admin Dose 1 TAB; Start 12/25/18 at 18:30 Morphine Sulfate (morphine) 2 mg Q4H PRN IV .SEVERE PAIN 7-10; Start 12/25/18 at 18:30 Docusate Sodium (Colace) 100 mg Q12H PRN PO .CONSTIPATION; Start 12/25/18 at 18:30 Magnesium Hydroxide (Milk Of Mag) 30 ml DAILY PRN PO .CONSTIPATION; Start 12/25/18 at 18:30 Lorazepam (Ativan) 0.5 mg Q6H PRN IV ANXIETY; Start 12/25/18 at 18:30 Albuterol/ Ipratropium (Duoneb) 3 ml Q4H RESP THERAPY PRN HHN SHORTNESS OF BREATH; Start 12/25/18 at 18:30 Piperacillin Sod/ Tazobactam Sod 100 ml @ 200 mls/hr Q6 IVPB Last administered on 12/27/18 07:10; Admin Dose 200 MLS/HR; Start 12/26/18 at 00:00 Hydralazine HCl (Apresoline) 10 mg Q6H PRN IV ELEVATED BLOOD PRESSURE; Start 12/25/18 at 18:30 Nitroglycerin (Nitroglycerin (Sl Tab) 0.4 Mg) 1 tab Q5M PRN SL ANGINA; Start 12/25/18 at 18:30 Acetaminophen (Tylenol Liquid) 650 mg Q4H PRN GTB PAIN LEVEL 1-5; Start 12/25/18 at 18:30 Allopurinol (Zyloprim) 100 mg BID GTB Last administered on 12/27/18 09:08; Admin Dose 100 MG; Start 12/25/18 at 21:00 Atorvastatin Calcium (Lipitor) 80 mg QHS GTB Last administered on 12/26/18 21:32; Admin Dose 80 MG; Start 12/25/18 at 21:00 Carvedilol (Coreg) 6.25 mg BID GTB Last administered on 12/27/18 09:06; Admin Dose 6.25 MG; Start 12/25/18 at 21:00 Digoxin (Digoxin) 0.125 mg DAILY@1300 GTB Last administered on 12/26/18 13:16; Admin Dose 0.125 MG; Start 12/26/18 at 13:00 Famotidine (Pepcid) 20 mg QAM GTB Last administered on 12/27/18 09:07; Admin Dose 20 MG; Start 12/26/18 at 09:00 Furosemide (Lasix) 20 mg BID GTB Last administered on 12/27/18 09:07; Admin Dose 20 MG; Start 12/25/18 at 21:00 Lisinopril (Zestril) 5 mg DAILY GTB Last administered on 12/27/18 09:07; Admin Dose 5 MG; Start 12/26/18 at 09:00 Magnesium Hydroxide (Milk Of Mag) 30 ml Q24H GTB Last administered on 12/26/18 17:35; Admin Dose 30 ML; Start 12/25/18 at 18:30 Ascorbic Acid (Vitamin C) 500 mg DAILY GTB Last administered on 12/27/18 09:07; Admin Dose 500 MG; Start 12/26/18 at 10:00 Sodium Hypochlorite (Dakins Diluted ()) 1 applic BID TP Last administered on 12/27/18 09:08; Admin Dose 1 APPLIC; Start 12/26/18 at 16:00 Aspirin (Aspirin) 81 mg DAILY PO Last administered on 12/27/18 09:07; Admin Dose 81 MG; Start 12/27/18 at 09:00 TIMO VELAZQUEZ Dec 27, 2018 10:12
[2018-12-27] MEDS ORDERED: ASCORBIC ACID 500 MG TAB PO SCH (10:30)
--- NOTE | 2018-12-27 10:39 | PN ---
Date/Time of Note Date/Time of Note DATE: 12/27/18 TIME: 10:32 Assessment/Plan VTE Prophylaxis Risk score (from Ns)>0 risk: 4 SCD applied [place] [facility] [place] No SCD contraindicated: other Pharmacological prophylaxis: heparin Lines/Catheters IV [facility] Type [facility]from [facility] [place] Urinary Cath still in place: Yes Reason Cath still needed: urinary retention Assessment/Plan Hospital Course S: Patient seen by wound care nurse yesterday, and cardiology team today. O: VS- see below PHYSICAL EXAMINATION: GENERAL: lying in bed, minimally verbally responsive. HEENT: Pupils are equal, round and reactive to light. Extraocular muscles intact. NECK: Supple, no thyromegaly. LUNGS: Clear to auscultation bilaterally. CARDIOVASCULAR: S1, S2 heard. No rubs or gallops. ABDOMEN: Soft, nontender and nondistended. G-tube in place. Normal bowel so unds. No rebound or guarding. MUSCULOSKELETAL: No lower extremity edema bilaterally. NEUROLOGIC: She has got left-sided hemiparesis secondary to her stroke in the past. GENITOURINARY: + stage IV sacral decubitus ulcer. No drainage. 2D echo December 26, 2018: Conclusions: Normal left ventricular cavity size. Sigmoid septum. Mild left ventricular systolic dysfunction. Ejection fraction is visually estimated at 45 %. 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 Moderate posterior mitral annular calcification. Mild to moderate eccentric mitral valve regurgitation. Estimated peak PA systolic pressure 18 mmHg. Normal size and normal respiratory collapse consistent with normal right atrial pressure. ASSESSMENT AND PLAN: 63-year-old female coming in with stage IV decubitus buttock ulcer that needs wound treatment, positive urinary tract infection, and possible signs of ST elevation myocardial infarction. 1. Positive sacral decubitus ulcer-no drainage was noted on admission. Appreciate wound care nurse consult recommendations. White blood cell count normal, no fevers - We will add zinc, multivitamin, folic acid, vitamin C - Continue broad spectrum antibiotics for now. - Given the staging of the ulcer - consider imaging studies including MRI or x-ray of this area. - Continue broad spectrum antibiotics, Tylenol p.r.n. pain and fevers. 2. Urinary tract infection: + UA found on admission. Urine culture positive for Klebsiella grade 100,000 colony-forming - Again, we will continue broad spectrum antibiotics, low-dose IV fluids, Tylenol p.r.n. pain and fevers. 3. Possible non- ST elevation myocardial infarction-appreciate cardiology consult, patient denied chest pain, had been treated earlier with Lovenox 1 mg/kg -Continue cardiac medications as ordered by cardiology team EDGAR inhibitor, digoxin, beta-maureen, Lipitor, Lasix -We will continue to trend the troponins and follow-up further cardiology recommendations 4. History of diabetes- A1c = 6.5. Sugar stable - continue sliding scale insulin. 5. History of hypertension. Blood pressure stable. - Continue current blood pressure medications. 6. History of high cholesterol. - Continue statin. 7. Significant CVA: This occurred approximately 1 month ago with residual left- sided weakness symptoms that are still present -Monitor, continue PT, statin 8. GI prophylaxis- Pepcid via G-tube. Result Diagram: 12/27/1851112/27/18511 Results 24hrs Laboratory Tests Test 12/26/18 10:40 12/26/18 15:51 12/27/18 05:12 Troponin I 0.238 *H 0.156 *H White Blood Count 8.7 Red Blood Count 2.81 L Hemoglobin 8.2 L Hematocrit 25.4 L Mean Corpuscular Volume 90.4 Mean Corpuscular Hemoglobin 29.2 Mean Corpuscular Hemoglobin Concent 32.3 Red Cell Distribution Width 17.5 H Platelet Count 283 Mean Platelet Volume 10.3 Immature Granulocytes % 0.300 Neutrophils % 51.1 Lymphocytes % 35.7 Monocytes % 8.3 Eosinophils % 4.3 Basophils % 0.3 Nucleated Red Blood Cells % 0.0 Immature Granulocytes # 0.030 Neutrophils # 4.4 Lymphocytes # 3.1 H Monocytes # 0.7 Eosinophils # 0.4 Basophils # 0.0 Nucleated Red Blood Cells # 0.0 Sodium Level 139 Potassium Level 3.5 Chloride Level 99 Carbon Dioxide Level 29 Anion Gap 11 Blood Urea Nitrogen 24 H Creatinine 0.52 Est Glomerular Filtrat Rate mL/min > 60 Glucose Level 184 Calcium Level 8.6 Exam/Review of Systems Exam Vitals Vital Signs Date Temp Pulse Resp B/P (MAP) Pulse Ox O2 O2 Flow FiO2 Time Delivery Rate 12/27/18 102 08:53 12/27/18 99.1 18 112/64 98 08:05 (80) 12/26/18 2.0 23:53 12/26/18 Nasal 11:14 Cannula Intake and Output 12/26/18 12/26/18 12/27/18 1515:00 23:00 07:00 IntakeIntake Total 720 ml 100 ml OutputOutput Total 1600 ml 1201 ml BalanceBalance -880 ml -1101 ml Results Results 24hrs Laboratory Tests Test 12/26/18 10:40 12/26/18 15:51 12/27/18 05:12 Troponin I 0.238 *H 0.156 *H White Blood Count 8.7 Red Blood Count 2.81 L Hemoglobin 8.2 L Hematocrit 25.4 L Mean Corpuscular Volume 90.4 Mean Corpuscular Hemoglobin 29.2 Mean Corpuscular Hemoglobin Concent 32.3 Red Cell Distribution Width 17.5 H Platelet Count 283 Mean Platelet Volume 10.3 Immature Granulocytes % 0.300 Neutrophils % 51.1 Lymphocytes % 35.7 Monocytes % 8.3 Eosinophils % 4.3 Basophils % 0.3 Nucleated Red Blood Cells % 0.0 Immature Granulocytes # 0.030 Neutrophils # 4.4 Lymphocytes # 3.1 H Monocytes # 0.7 Eosinophils # 0.4 Basophils # 0.0 Nucleated Red Blood Cells # 0.0 Sodium Level 139 Potassium Level 3.5 Chloride Level 99 Carbon Dioxide Level 29 Anion Gap 11 Blood Urea Nitrogen 24 H Creatinine 0.52 Est Glomerular Filtrat Rate mL/min > 60 Glucose Level 184 Calcium Level 8.6 Medications Medication Current Medications IV Flush (NS 3 ml) 3 ml PER PROTOCOL IV ; Start 12/25/18 at 18:30 Ondansetron HCl (Zofran Inj) 4 mg Q6H PRN IV NAUSEA/VOMITING; Start 12/25/18 at 18:30 Acetaminophen (Tylenol Tab) 650 mg Q6H PRN PO .PAIN 1-3 OR TEMP; Start 12/25/18 at 18:30 Acetaminophen/ Hydrocodone Bitart ([place] (5/325)) 1 tab Q6H PRN PO .MOD PAIN 4- 6 Last administered on 12/25/18at 19:35; Admin Dose 1 TAB; Start 12/25/18 at 18:30 Morphine Sulfate (morphine) 2 mg Q4H PRN IV .SEVERE PAIN 7-10; Start 12/25/18 at 18:30 Docusate Sodium (Colace) 100 mg Q12H PRN PO .CONSTIPATION; Start 12/25/18 at 18:30 Magnesium Hydroxide (Milk Of Mag) 30 ml DAILY PRN PO .CONSTIPATION; Start 12/25/18 at 18:30 Lorazepam (Ativan) 0.5 mg Q6H PRN IV ANXIETY; Start 12/25/18 at 18:30 Albuterol/ Ipratropium (Duoneb) 3 ml Q4H RESP THERAPY PRN HHN SHORTNESS OF BREATH; Start 12/25/18 at 18:30 Piperacillin Sod/ Tazobactam Sod 100 ml @ 200 mls/hr Q6 IVPB Last administered on 12/27/18 07:10; Admin Dose 200 MLS/HR; Start 12/26/18 at 00:00 Hydralazine HCl (Apresoline) 10 mg Q6H PRN IV ELEVATED BLOOD PRESSURE; Start 12/25/18 at 18:30 Nitroglycerin (Nitroglycerin (Sl Tab) 0.4 Mg) 1 tab Q5M PRN SL ANGINA; Start 12/25/18 at 18:30 Acetaminophen (Tylenol Liquid) 650 mg Q4H PRN GTB PAIN LEVEL 1-5; Start 12/25/18 at 18:30 Allopurinol (Zyloprim) 100 mg BID GTB Last administered on 12/27/18 09:08; Ad min Dose 100 MG; Start 12/25/18 at 21:00 Atorvastatin Calcium (Lipitor) 80 mg QHS GTB Last administered on 12/26/18at 21:32; Admin Dose 80 MG; Start 12/25/18 at 21:00 Carvedilol (Coreg) 6.25 mg BID GTB Last administered on 12/27/18 09:06; Admin Dose 6.25 MG; Start 12/25/18 at 21:00 Digoxin (Digoxin) 0.125 mg DAILY@1300 GTB Last administered on 12/26/18 13:16; Admin Dose 0.125 MG; Start 12/26/18 at 13:00 Famotidine (Pepcid) 20 mg QAM GTB Last administered on 12/27/18 09:07; Admin Dose 20 MG; Start 12/26/18 at 09:00 Furosemide (Lasix) 20 mg BID GTB Last administered on 12/27/18 09:07; Admin Dose 20 MG; Start 12/25/18 at 21:00 Lisinopril (Zestril) 5 mg DAILY GTB Last administered on 12/27/18at 09:07; Admin Dose 5 MG; Start 12/26/18 at 09:00 Magnesium Hydroxide (Milk Of Mag) 30 ml Q24H GTB Last administered on 12/26/18at 17:35; Admin Dose 30 ML; Start 12/25/18 at 18:30 Ascorbic Acid (Vitamin C) 500 mg DAILY GTB Last administered on 12/27/18at 09:07; Admin Dose 500 MG; Start 12/26/18 at 10:00 Sodium Hypochlorite (Dakins Diluted ()) 1 applic BID TP Last administered on 12/27/18at 09:08; Admin Dose 1 APPLIC; Start 12/26/18 at 16:00 Aspirin (Aspirin) 81 mg DAILY PO Last administered on 12/27/18at 09:07; Admin Dose 81 MG; Start 12/27/18 at 09:00 Zinc Sulfate (Zinc Sulfate) 220 mg DAILY GTB ; Start 12/27/18 at 10:30 Multivitamins Therapeutic (Theragran) 1 tab DAILY PO ; Start 12/27/18 at 10:30 Folic Acid (Folic Acid) 1 mg DAILY PO ; Start 12/27/18 at 10:30 MARI ESPITIA Dec 27, 2018 10:39
[2018-12-27] MEDS: ZINC SULFATE 220 MG CAP GTB SCH (12:09)
[2018-12-27] MEDS: MULTIVITAMINS THERAPEUTIC TAB PO SCH (12:09)
[2018-12-27] MEDS: FOLIC ACID 1 MG TAB PO SCH (12:10)
[2018-12-27] MEDS: DIGOXIN 0.125 MG TAB GTB SCH (13:00)
[2018-12-27] MEDS: MAGNESIUM HYDROXIDE 30ML CUP GTB SCH (18:15)
[2018-12-27] MEDS: ATORVASTATIN 80 MG TAB GTB SCH (21:29)
[2018-12-27] MEDS: HEPARIN 5,000 UNIT/1 ML VIAL SC SCH (21:50)
[2018-12-28] VITALS (12 sets, daily range): BP systolic 101–123; BP diastolic 57–67; PULSE 64–104; RESP 18–20
[2018-12-28] MEDS: PIPER-TAZO 3.375 GM IV (PMX) 100 ML IVPB SCH ×5 (00:19→23:58)
[2018-12-28] MEDS: FAMOTIDINE 20 MG TAB GTB SCH (08:45)
[2018-12-28] MEDS: FOLIC ACID 1 MG TAB PO SCH (08:45)
[2018-12-28] MEDS: ASPIRIN 81 MG TAB PO SCH (08:45)
[2018-12-28] MEDS: LISINOPRIL 5 MG TAB GTB SCH (08:45)
[2018-12-28] MEDS: ALLOPURINOL 100 MG TAB GTB SCH ×2 (08:45→20:36)
[2018-12-28] MEDS: ASCORBIC ACID 500 MG TAB GTB SCH (08:45)
[2018-12-28] MEDS: MULTIVITAMINS THERAPEUTIC TAB PO SCH (08:46)
[2018-12-28] MEDS: FUROSEMIDE 20 MG TAB GTB SCH ×2 (08:46→20:36)
[2018-12-28] MEDS: HEPARIN 5,000 UNIT/1 ML VIAL SC SCH ×2 (08:55→21:05)
[2018-12-28] MEDS: ZINC SULFATE 220 MG CAP GTB SCH (09:12)
[2018-12-28] MEDS: DAKINS 0.0125%(1/40) 473 ML SOLUTION TP SCH ×2 (09:12→20:36)
--- NOTE | 2018-12-28 10:19 | CONS ---
Assessment/Plan Assessment/Plan Assessment/Plan (Daily) Clean and granulating sacral decubitus ulcer. No surgical intervention is necessary. Patient can continue with treatment by wound nurse. I will sign off and see again prn your request. Consultation Date/Type/Reason Admit Date/Time Dec 25, 2018 at 18:05 Date of Consultation: Dec 28, 2018 Type of Consult General surgery Reason for Consultation Sacral decubitus ulcer Date/Time of Note DATE: 12/28/18 TIME: 10:15 Hx of Present Illness The patient is a 63-year-old female who [facility] a [facility]. She is hemiparetic is fed she has a known sacral decubitus ulcer. She is here for a variety of reasons. I have been asked to see her in regards to a full-thickness sacral decubitus ulcer. Review of systems: Well outlined in the chart Past Medical History Medical History: coronary artery disease, diabetes, urinary tract infection Home Meds Reported Medications Insulin Aspart* (Novolog Insulin Pen*) 100 Unit/Ml Soln, 0 SC .SLIDING SCALE AC, EA IF BS 200-250=2 UNITS, 251-300=4 UNITS, 301-350=6 UNITS, 351-400=8 UNITS, 401-450=10 UNITS, 451-500=12 UNITS AND CALL MD. 12/25/18 Lisinopril* (Zestril*) 5 Mg Tablet, 5 MG GTB DAILY, #30 TAB HOLD FOR SBP<110 OR CO<60 12/25/18 Vit C-Ascorbate Ca-Ascorb Sod (Vitamin C) 500 Mg/15 Ml Liquid, 5 ML GTB DAILY, ML 12/25/18 Famotidine* (Famotidine*) 20 Mg Tablet, 20 MG GTB QAM, #30 TAB 12/25/18 Hydrocodone/Acetaminophen ([place] 5-325 Tablet) 1 Each Tablet, 1 EACH GTB Q6H PRN for PAIN 6-10/10, TAB 12/25/18 Nitroglycerin* (Nitroglycerin* SL) 0.4 Mg Tab.subl, 0.4 MG SL Q5MIN PRN for CHEST PAIN, BOTTLE 12/25/18 Magnesium Hydroxide* (Milk Of Magnesia*) 400 Mg/5 Ml Oral.susp, 30 ML GTB Q24H for CONSTIPATION, ML 12/25/18 Atorvastatin* (Atorvastatin*) 80 Mg Tablet, 80 MG GTB QHS, #30 TAB 12/25/18 Furosemide* (Lasix*) 20 Mg Tablet, 20 MG GTB BID, TAB 12/25/18 Digoxin* (Digox*) 125 Mcg Tablet, 0.125 MG GTB DAILY, TAB HOLD FOR HR<60 12/25/18 Carvedilol* (Coreg*) 6.25 Mg Tablet, 6.25 MG GTB BID, #60 TAB HOLD FOR SBP<110 OR CO<60 12/25/18 Docusate Sodium* (Colace*) 100 Mg Capsule, 100 MG GTB Q12H PRN for CONSTIPATION, #30 CAP 12/25/18 Aspirin* (Aspirin* EC) 81 Mg Tablet.dr, 81 MG GTB DAILY, TAB 12/25/18 Allopurinol* (Allopurinol*) 100 Mg Tablet, 100 MG GTB BID, TAB 12/25/18 Acetaminophen* (Acetaminophen* Susp) 325 Mg/10.15 Ml Solution, 20 ML GTB Q4H PRN for PAIN LEVEL 1-5, ML 12/25/18 Medications Current Medications IV Flush (NS 3 ml) 3 ml PER PROTOCOL IV ; Start 12/25/18 at 18:30 Ondansetron HCl (Zofran Inj) 4 mg Q6H PRN IV NAUSEA/VOMITING; Start 12/25/18 at 18:30 Acetaminophen (Tylenol Tab) 650 mg Q6H PRN PO .PAIN 1-3 OR TEMP; Start 12/25/18 at 18:30 Acetaminophen/ Hydrocodone Bitart ([place] (5/325)) 1 tab Q6H PRN PO .MOD PAIN 4- 6 Last administered on 12/25/18at 19:35; Admin Dose 1 TAB; Start 12/25/18 at 18:30 Morphine Sulfate (morphine) 2 mg Q4H PRN IV .SEVERE PAIN 7-10; Start 12/25/18 at 18:30 Docusate Sodium (Colace) 100 mg Q12H PRN PO .CONSTIPATION; Start 12/25/18 at 18:30 Magnesium Hydroxide (Milk Of Mag) 30 ml DAILY PRN PO .CONSTIPATION; Start 12/25/18 at 18:30 Lorazepam (Ativan) 0.5 mg Q6H PRN IV ANXIETY; Start 12/25/18 at 18:30 Albuterol/ Ipratropium (Duoneb) 3 ml Q4H RESP THERAPY PRN HHN SHORTNESS OF BREATH; Start 12/25/18 at 18:30 Piperacillin Sod/ Tazobactam Sod 100 ml @ 200 mls/hr Q6 IVPB Last administered on 12/28/18 05:40; Admin Dose 200 MLS/HR; Start 12/26/18 at 00:00 Hydralazine HCl (Apresoline) 10 mg Q6H PRN IV ELEVATED BLOOD PRESSURE; Start 12/25/18 at 18:30 Nitroglycerin (Nitroglycerin (Sl Tab) 0.4 Mg) 1 tab Q5M PRN SL ANGINA; Start 12/25/18 at 18:30 Acetaminophen (Tylenol Liquid) 650 mg Q4H PRN GTB PAIN LEVEL 1-5; Start 12/25/18 at 18:30 Allopurinol (Zyloprim) 100 mg BID GTB Last administered on 12/28/18 08:45; Admin Dose 100 MG; Start 12/25/18 at 21:00 Atorvastatin Calcium (Lipitor) 80 mg QHS GTB Last administered on 12/27/18 21:29; Admin Dose 80 MG; Start 12/25/18 at 21:00 Carvedilol (Coreg) 6.25 mg BID GTB Last administered on 12/28/18 08:46; Admin Dose 6.25 MG; Start 12/25/18 at 21:00 Digoxin (Digoxin) 0.125 mg DAILY@1300 GTB Last administered on 12/27/18 13:00; Admin Dose 0.125 MG; Start 12/26/18 at 13:00 Famotidine (Pepcid) 20 mg QAM GTB Last administered on 12/28/18 08:45; Admin Dose 20 MG; Start 12/26/18 at 09:00 Furosemide (Lasix) 20 mg BID GTB Last administered on 12/28/18 08:46; Admin Dose 20 MG; Start 12/25/18 at 21:00 Lisinopril (Zestril) 5 mg DAILY GTB Last administered on 12/28/18 08:45; Admin Dose 5 MG; Start 12/26/18 at 09:00 Magnesium Hydroxide (Milk Of Mag) 30 ml Q24H GTB Last administered on 12/27/18 18:15; Admin Dose 30 ML; Start 12/25/18 at 18:30 Ascorbic Acid (Vitamin C) 500 mg DAILY GTB Last administered on 12/28/18 08:45; Admin Dose 500 MG; Start 12/26/18 at 10:00 Sodium Hypochlorite (Dakins Diluted ()) 1 applic BID TP Last administered on 12/28/18 09:12; Admin Dose 1 APPLIC; Start 12/26/18 at 16:00 Aspirin (Aspirin) 81 mg DAILY PO Last administered on 12/28/18 08:45; Admin Dose 81 MG; Start 12/27/18 at 09:00 Zinc Sulfate (Zinc Sulfate) 220 mg DAILY GTB Last administered on 12/28/18 09:12; Admin Dose 220 MG; Start 12/27/18 at 10:30 Multivitamins Therapeutic (Theragran) 1 tab DAILY PO Last administered on 12/28/18 08:46; Admin Dose 1 TAB; Start 12/27/18 at 10:30 Folic Acid (Folic Acid) 1 mg DAILY PO Last administered on 12/28/18 08:45; Admin Dose 1 MG; Start 12/27/18 at 10:30 Heparin Sodium (Porcine) (Heparin (5000 Units/1ml)) 5,000 unit BID SC Last administered on 12/28/18 08:55; Admin Dose 5,000 UNIT; Start 12/27/18 at 21:00 Allergies: Coded Allergies: No Known Allergy (Unverified , 12/25/18) Unknown: Unable to obtain (Unverified , 12/27/18) Past Surgical History Past Surgical Hx: other (G-tube) Family History Significant Family History: no pertinent family hx Social History Smoking Status: Unknown if ever smoked Exam/Review of Systems Exam Vitals Vital Signs Date Temp Pulse Resp B/P (MAP) Pulse Ox O2 O2 Flow FiO2 Time Delivery Rate 12/28/18 99 09:05 12/28/18 98.2 20 108/67 93 07:48 (81) 12/28/18 2.0 02:21 12/26/18 Nasal 11:14 Cannula Intake and Output 12/27/18 12/27/18 12/28/18 1515:00 23:00 07:00 IntakeIntake Total 1120 ml 1120 ml 920 ml OutputOutput Total 1200 ml 1000 ml BalanceBalance 1120 ml -80 ml -80 ml Constitutional: non-verbal Head: normocephalic Eyes: nl conjunctiva ENMT: nl external ears & nose Neck: supple Respiratory: clear to auscultation Cardiovascular: regular rate and rhythm Gastrointestinal: soft Musculoskeletal: nl extremities to inspection, other (There is a 6 cm full- thickness sacral decubitus ulcer which is clean and granulating. There is no necrotic debris.) Results Result Diagram: 12/28/1851112/28/1812 Results 24hrs Laboratory Tests Test 12/28/18 05:12 White Blood Count 8.5 Red Blood Count 3.01 L Hemoglobin 9.0 L Hematocrit 26.8 L Mean Corpuscular Volume 89.0 Mean Corpuscular Hemoglobin 29.9 Mean Corpuscular Hemoglobin Concent 33.6 Red Cell Distribution Width 18.0 H Platelet Count 305 Mean Platelet Volume 10.5 H Immature Granulocytes % 0.200 Neutrophils % 54.8 Lymphocytes % 34.1 Monocytes % 7.9 Eosinophils % 2.8 Basophils % 0.2 Nucleated Red Blood Cells % 0.0 Immature Granulocytes # 0.020 Neutrophils # 4.7 Lymphocytes # 2.9 Monocytes # 0.7 Eosinophils # 0.2 Basophils # 0.0 Nucleated Red Blood Cells # 0.0 Sodium Level 140 Potassium Level 3.4 L Chloride Level 99 Carbon Dioxide Level 32 H Anion Gap 9 Blood Urea Nitrogen 25 H Creatinine 0.54 Est Glomerular Filtrat Rate mL/min > 60 Glucose Level 179 Calcium Level 9.2 Medications Medication Current Medications IV Flush (NS 3 ml) 3 ml PER PROTOCOL IV ; Start 12/25/18 at 18:30 Ondansetron HCl (Zofran Inj) 4 mg Q6H PRN IV NAUSEA/VOMITING; Start 12/25/18 at 18:30 Acetaminophen (Tylenol Tab) 650 mg Q6H PRN PO .PAIN 1-3 OR TEMP; Start 12/25/18 at 18:30 Acetaminophen/ Hydrocodone Bitart ([place] (5/325)) 1 tab Q6H PRN PO .MOD PAIN 4- 6 Last administered on 12/25/18at 19:35; Admin Dose 1 TAB; Start 12/25/18 at 18:30 Morphine Sulfate (morphine) 2 mg Q4H PRN IV .SEVERE PAIN 7-10; Start 12/25/18 at 18:30 Docusate Sodium (Colace) 100 mg Q12H PRN PO .CONSTIPATION; Start 12/25/18 at 18:30 Magnesium Hydroxide (Milk Of Mag) 30 ml DAILY PRN PO .CONSTIPATION; Start 12/25/18 at 18:30 Lorazepam (Ativan) 0.5 mg Q6H PRN IV ANXIETY; Start 12/25/18 at 18:30 Albuterol/ Ipratropium (Duoneb) 3 ml Q4H RESP THERAPY PRN HHN SHORTNESS OF BREATH; Start 12/25/18 at 18:30 Piperacillin Sod/ Tazobactam Sod 100 ml @ 200 mls/hr Q6 IVPB Last administered on 12/28/18at 05:40; Admin Dose 200 MLS/HR; Start 12/26/18 at 00:00 Hydralazine HCl (Apresoline) 10 mg Q6H PRN IV ELEVATED BLOOD PRESSURE; Start 12/25/18 at 18:30 Nitroglycerin (Nitroglycerin (Sl Tab) 0.4 Mg) 1 tab Q5M PRN SL ANGINA; Start 12/25/18 at 18:30 Acetaminophen (Tylenol Liquid) 650 mg Q4H PRN GTB PAIN LEVEL 1-5; Start 12/25/18 at 18:30 Allopurinol (Zyloprim) 100 mg BID GTB Last administered on 12/28/18at 08:45; Admin Dose 100 MG; Start 12/25/18 at 21:00 Atorvastatin Calcium (Lipitor) 80 mg QHS GTB Last administered on 12/27/18at 21:29; Admin Dose 80 MG; Start 12/25/18 at 21:00 Carvedilol (Coreg) 6.25 mg BID GTB Last administered on 12/28/18at 08:46; Admin Dose 6.25 MG; Start 12/25/18 at 21:00 Digoxin (Digoxin) 0.125 mg DAILY@1300 GTB Last administered on 12/27/18at 13:00; Admin Dose 0.125 MG; Start 12/26/18 at 13:00 Famotidine (Pepcid) 20 mg QAM GTB Last administered on 12/28/18at 08:45; Admin Dose 20 MG; Start 12/26/18 at 09:00 Furosemide (Lasix) 20 mg BID GTB Last administered on 12/28/18 08:46; Admin Dose 20 MG; Start 12/25/18 at 21:00 Lisinopril (Zestril) 5 mg DAILY GTB Last administered on 12/28/18 08:45; Admin Dose 5 MG; Start 12/26/18 at 09:00 Magnesium Hydroxide (Milk Of Mag) 30 ml Q24H GTB Last administered on 12/27/18 18:15; Admin Dose 30 ML; Start 12/25/18 at 18:30 Ascorbic Acid (Vitamin C) 500 mg DAILY GTB Last administered on 12/28/18 08:45; Admin Dose 500 MG; Start 12/26/18 at 10:00 Sodium Hypochlorite (Dakins Diluted ()) 1 applic BID TP Last administered on 12/28/18 09:12; Admin Dose 1 APPLIC; Start 12/26/18 at 16:00 Aspirin (Aspirin) 81 mg DAILY PO Last administered on 12/28/18 08:45; Admin Dose 81 MG; Start 12/27/18 at 09:00 Zinc Sulfate (Zinc Sulfate) 220 mg DAILY GTB Last administered on 12/28/18 0 9:12; Admin Dose 220 MG; Start 12/27/18 at 10:30 Multivitamins Therapeutic (Theragran) 1 tab DAILY PO Last administered on 12/28/18 08:46; Admin Dose 1 TAB; Start 12/27/18 at 10:30 Folic Acid (Folic Acid) 1 mg DAILY PO Last administered on 12/28/18 08:45; Admin Dose 1 MG; Start 12/27/18 at 10:30 Heparin Sodium (Porcine) (Heparin (5000 Units/1ml)) 5,000 unit BID SC Last administered on 12/28/18 08:55; Admin Dose 5,000 UNIT; Start 12/27/18 at 21:00 SOLIS MARTINES MD Dec 28, 2018 10:19
--- NOTE | 2018-12-28 11:17 | CONS ---
Assessment/Plan Assessment/Plan Hospital Course (Demo Recall) NSTEMI: EKG showed q waves and inferior ST elevations which are from an old LA and aneurysmal changes. Trop peaked at 0.28 and is not consistent with ACS in setting of lack of symptoms. Possible type II from underlying CAD and infections etiologies. Not a cardiac cath candidate at this time. 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 Euvolemic on exam h/o CVA with left hemiparesis DM HTN -ASA -lipitor 80mg -coreg 6.25mg BID -digoxin 125mcg daily (?for cardiomyopathy vs afib but pt in sinus) -lisinopril 5mg -lasix 20mg PO BID -antibiotics, would care Ok for d/c from my perspective Consultation Date/Type/Reason Admit Date/Time Dec 25, 2018 at 18:05 Initial Consult Date 12/26/18 Type of Consult Cardiology Requesting Provider: MARI ESPITIA Date/Time of Note DATE: 12/28/18 TIME: 11:16 24 HR Interval Summary Free Text/Dictation Doing well. Gave a thumbs up today. Exam/Review of Systems Vital Signs Vitals Vital Signs Date Temp Pulse Resp B/P (MAP) Pulse Ox O2 O2 Flow FiO2 Time Delivery Rate 12/28/18 98.5 96 20 101/57 95 10:48 (72) 12/28/18 2.0 09:00 12/26/18 Nasal 11:14 Cannula Intake and Output 12/27/18 12/27/18 12/28/18 1515:00 23:00 07:00 IntakeIntake Total 1120 ml 1120 ml 920 ml OutputOutput Total 1200 ml 1000 ml BalanceBalance 1120 ml -80 ml -80 ml Exam Constitutional: alert Psych: no complaints, nl mood/affect Head: normocephalic, atraumatic Neck: No jvd Respiratory: diminished breath sounds; No clear to auscultation Cardiovascular: regular rate and rhythm; No edema, No systolic murmur Gastrointestinal: soft, non-tender; No distended Neurological: nl mental status; No nl speech Labs Result Diagram: 12/28/18 0512 12/28/18 0512 Results 24hrs Laboratory Tests Test 12/28/18 05:12 White Blood Count 8.5 Red Blood Count 3.01 L Hemoglobin 9.0 L Hematocrit 26.8 L Mean Corpuscular Volume 89.0 Mean Corpuscular Hemoglobin 29.9 Mean Corpuscular Hemoglobin Concent 33.6 Red Cell Distribution Width 18.0 H Platelet Count 305 Mean Platelet Volume 10.5 H Immature Granulocytes % 0.200 Neutrophils % 54.8 Lymphocytes % 34.1 Monocytes % 7.9 Eosinophils % 2.8 Basophils % 0.2 Nucleated Red Blood Cells % 0.0 Immature Granulocytes # 0.020 Neutrophils # 4.7 Lymphocytes # 2.9 Monocytes # 0.7 Eosinophils # 0.2 Basophils # 0.0 Nucleated Red Blood Cells # 0.0 Sodium Level 140 Potassium Level 3.4 L Chloride Level 99 Carbon Dioxide Level 32 H Anion Gap 9 Blood Urea Nitrogen 25 H Creatinine 0.54 Est Glomerular Filtrat Rate mL/min > 60 Glucose Level 179 Calcium Level 9.2 Medications Medications Current Medications IV Flush (NS 3 ml) 3 ml PER PROTOCOL IV ; Start 12/25/18 at 18:30 Ondansetron HCl (Zofran Inj) 4 mg Q6H PRN IV NAUSEA/VOMITING; Start 12/25/18 at 18:30 Acetaminophen (Tylenol Tab) 650 mg Q6H PRN PO .PAIN 1-3 OR TEMP; Start 12/25/18 at 18:30 Acetaminophen/ Hydrocodone Bitart ([place] (5/325)) 1 tab Q6H PRN PO .MOD PAIN 4- 6 Last administered on 12/25/18at 19:35; Admin Dose 1 TAB; Start 12/25/18 at 18:30 Morphine Sulfate (morphine) 2 mg Q4H PRN IV .SEVERE PAIN 7-10; Start 12/25/18 at 18:30 Docusate Sodium (Colace) 100 mg Q12H PRN PO .CONSTIPATION; Start 12/25/18 at 18:30 Magnesium Hydroxide (Milk Of Mag) 30 ml DAILY PRN PO .CONSTIPATION; Start 12/25/18 at 18:30 Lorazepam (Ativan) 0.5 mg Q6H PRN IV ANXIETY; Start 12/25/18 at 18:30 Albuterol/ Ipratropium (Duoneb) 3 ml Q4H RESP THERAPY PRN HHN SHORTNESS OF BREATH; Start 12/25/18 at 18:30 Piperacillin Sod/ Tazobactam Sod 100 ml @ 200 mls/hr Q6 IVPB Last administered on 12/28/18 05:40; Admin Dose 200 MLS/HR; Start 12/26/18 at 00:00 Hydralazine HCl (Apresoline) 10 mg Q6H PRN IV ELEVATED BLOOD PRESSURE; Start 12/25/18 at 18:30 Nitroglycerin (Nitroglycerin (Sl Tab) 0.4 Mg) 1 tab Q5M PRN SL ANGINA; Start 12/25/18 at 18:30 Acetaminophen (Tylenol Liquid) 650 mg Q4H PRN GTB PAIN LEVEL 1-5; Start 12/25/18 at 18:30 Allopurinol (Zyloprim) 100 mg BID GTB Last administered on 12/28/18 08:45; Admin Dose 100 MG; Start 12/25/18 at 21:00 Atorvastatin Calcium (Lipitor) 80 mg QHS GTB Last administered on 12/27/18 21:29; Admin Dose 80 MG; Start 12/25/18 at 21:00 Carvedilol (Coreg) 6.25 mg BID GTB Last administered on 12/28/18 08:46; Admin Dose 6.25 MG; Start 12/25/18 at 21:00 Digoxin (Digoxin) 0.125 mg DAILY@1300 GTB Last administered on 12/27/18 13:00; Admin Dose 0.125 MG; Start 12/26/18 at 13:00 Famotidine (Pepcid) 20 mg QAM GTB Last administered on 12/28/18 08:45; Admin Dose 20 MG; Start 12/26/18 at 09:00 Furosemide (Lasix) 20 mg BID GTB Last administered on 12/28/18 08:46; Admin Dose 20 MG; Start 12/25/18 at 21:00 Lisinopril (Zestril) 5 mg DAILY GTB Last administered on 12/28/18 08:45; Admin Dose 5 MG; Start 12/26/18 at 09:00 Magnesium Hydroxide (Milk Of Mag) 30 ml Q24H GTB Last administered on 12/27/18 18:15; Admin Dose 30 ML; Start 12/25/18 at 18:30 Ascorbic Acid (Vitamin C) 500 mg DAILY GTB Last administered on 12/28/18 08: 45; Admin Dose 500 MG; Start 12/26/18 at 10:00 Sodium Hypochlorite (Dakins Diluted ()) 1 applic BID TP Last administered on 12/28/18 09:12; Admin Dose 1 APPLIC; Start 12/26/18 at 16:00 Aspirin (Aspirin) 81 mg DAILY PO Last administered on 12/28/18 08:45; Admin Dose 81 MG; Start 12/27/18 at 09:00 Zinc Sulfate (Zinc Sulfate) 220 mg DAILY GTB Last administered on 12/28/18 09:12; Admin Dose 220 MG; Start 12/27/18 at 10:30 Multivitamins Therapeutic (Theragran) 1 tab DAILY PO Last administered on 12/28/18 08:46; Admin Dose 1 TAB; Start 12/27/18 at 10:30 Folic Acid (Folic Acid) 1 mg DAILY PO Last administered on 12/28/18 08:45; Admin Dose 1 MG; Start 12/27/18 at 10:30 Heparin Sodium (Porcine) (Heparin (5000 Units/1ml)) 5,000 unit BID SC Last administered on 12/28/18 08:55; Admin Dose 5,000 UNIT; Start 12/27/18 at 21:00 TIMO VELAZQUEZ Dec 28, 2018 11:17
[2018-12-28] MEDS: DIGOXIN 0.125 MG TAB GTB SCH (12:08)
[2018-12-28] MEDS ORDERED: POTASSIUM CHLORIDE (SR) 20 MEQ TAB PO STA (12:21)
--- NOTE | 2018-12-28 12:23 | PDOCDIS ---
Discharge Instructions CONDITION [id number] Patient Condition: [id number] Stable MARI ESPITIA Dec 28, 2018 12:23
--- NOTE | 2018-12-28 12:32 | DS ---
Date/Time of Note Date/Time of Note DATE: 12/28/18 TIME: 12:26 Discharge Summary Admission/Discharge Info Admit Date/Time Dec 25, 2018 at 18:05 Discharge Date/Time Discharge Diagnosis 1. Positive sacral decubitus ulcer-no drainage was noted on admission. Patient on antibiotics reviewed days, evaluated by wound care nurse and surgery team, no further intervention required other than normal wound care. 2. Urinary tract infection: + UA found on admission. Urine culture positive for Klebsiella grade 100,000 colony-forming units as well as Proteus 100,000 colony-forming units, overall improving 3. Possible non- ST elevation myocardial infarction-appreciate cardiology consult-improving with medical management 4. History of diabetes- A1c = 6.5. Sugar stable 5. History of hypertension. Blood pressure stable. 6. History of high cholesterol. - Continue statin. 7. Significant CVA: This occurred approximately 1 month ago with residual left- sided weakness symptoms that are still present Patient Condition: Stable Procedures 2D echo December 26, 2018: Conclusions: Normal left ventricular cavity size. Sigmoid septum. Mild left ventricular systolic dysfunction. Ejection fraction is visually estimated at 45 %. Aneurysm of the mid to distal septum and basal to mid inferior wall consistent with old MD. Moderate posterior mitral annular calcification. Mild to moderate eccentric mitral valve regurgitation. Estimated peak PA systolic pressure 18 mmHg. Normal size and normal respiratory collapse consistent with normal right atrial pressure. Hx of Present Illness 63-year-old female with past medical history based on records of prior stroke with left-sided weakness symptoms, likely high cholesterol, likely hypertension, likely diabetes, history of G-tube placement, who was sent from alf facility today because of pressure ulcer on her buttocks. Most of the information is obtained from the ER documentation as the patient is unable to provide full HPI at this time. It was noted, however, that the family was concerned the patient was not getting the proper care at the alf facility and she apparently had been on antibiotics for the pressure ulcer wound in her buttocks, but the wound does not appear to be healing. The patient did describe some positive pain symptoms in her buttock area. No chest pain or shortness of breath. That is the full extent of the review of systems that could be obtained at this time. When the patient arrived, the white blood cell count was normal, but the ESR was elevated at 130. The potassium was a little bit low at 3.4 and patient did receive antibiotics in the ER, the patient also had an EKG performed that showed signs of possible ST elevation myocardial infarction and a call was made out to the on-call filter tender, who recommended medical management at this time as the troponin is negative and the patient does not have any chest pain symptoms. The patient did get a dose of Lovenox 1 mg/kg as well. Hospital Course Patient was admitted and seen by wound nurse, general surgery, and cardiology teams during this hospital stay. Shins sacral decubitus ulcer was continued with wound care, no fevers, white blood cell count was normal. Surgery team felt that the wound overall is healing with appropriate wound care and no surgical intervention was required for this at this time. There was no pus or drainage or discharge noted from the area. Patient was also found with Klebsiella and Proteus UTI and placed on appropriate antibiotics for that. This improved. Patient also found with non-ST elevation MD and cardiology team saw the patient for that. Recommendation was just to continue medical management. Troponin was trending down by the time of discharge. No chest pain. Patient tolerated G-tube feeds, vital signs are stable. Patient is back at baseline status. After getting clearance from the consulting teams because the patient is clinically improved they will be discharged back to alf facility today in improved condition. See printed medicine reconciliation sheet for full list of discharge medications. Home Meds Reported Medications Insulin Aspart* (Novolog Insulin Pen*) 100 Unit/Ml Soln, 0 SC .SLIDING SCALE AC, EA IF BS 200-250=2 UNITS, 251-300=4 UNITS, 301-350=6 UNITS, 351-400=8 UNITS, 401-450=10 UNITS, 451-500=12 UNITS AND CALL . 12/25/18 Lisinopril* (Zestril*) 5 Mg Tablet, 5 MG GTB DAILY, #30 TAB HOLD FOR SBP<110 OR OK<60 12/25/18 Vit C-Ascorbate Ca-Ascorb Sod (Vitamin C) 500 Mg/15 Ml Liquid, 5 ML GTB DAILY, ML 12/25/18 Famotidine* (Famotidine*) 20 Mg Tablet, 20 MG GTB QAM, #30 TAB 12/25/18 Hydrocodone/Acetaminophen ([place] 5-325 Tablet) 1 Each Tablet, 1 EACH GTB Q6H PRN for PAIN 6-06/12, TAB 12/25/18 Nitroglycerin* (Nitroglycerin* SL) 0.4 Mg Tab.subl, 0.4 MG SL Q5MIN PRN for CHEST PAIN, BOTTLE 12/25/18 Magnesium Hydroxide* (Milk Of Magnesia*) 400 Mg/5 Ml Oral.susp, 30 ML GTB Q24H for CONSTIPATION, ML 12/25/18 Atorvastatin* (Atorvastatin*) 80 Mg Tablet, 80 MG GTB QHS, #30 TAB 12/25/18 Furosemide* (Lasix*) 20 Mg Tablet, 20 MG GTB BID, TAB 12/25/18 Digoxin* (Digox*) 125 Mcg Tablet, 0.125 MG GTB DAILY, TAB HOLD FOR HR<60 12/25/18 Carvedilol* (Coreg*) 6.25 Mg Tablet, 6.25 MG GTB BID, #60 TAB HOLD FOR SBP<110 OR OK<60 12/25/18 Docusate Sodium* (Colace*) 100 Mg Capsule, 100 MG GTB Q12H PRN for CONSTIPATION, #30 CAP 12/25/18 Aspirin* (Aspirin* EC) 81 Mg Tablet.dr, 81 MG GTB DAILY, TAB 12/25/18 Allopurinol* (Allopurinol*) 100 Mg Tablet, 100 MG GTB BID, TAB 12/25/18 Acetaminophen* (Acetaminophen* Susp) 325 Mg/10.15 Ml Solution, 20 ML GTB Q4H PRN for PAIN LEVEL 1-5, ML 12/25/18 Primary Care Provider Time spent on discharge: > 30 minutes Pending Labs Laboratory Tests Test 12/28/18 05:12 White Blood Count 8.5 10^3/ul (4.8-10.8) Red Blood Count 3.01 10^6/ul (4.20-5.40) Hemoglobin 9.0 g/dl (12.0-16.0) Hematocrit 26.8 % (37.0-47.0) Mean Corpuscular Volume 89.0 fl (82.0-101.0) Mean Corpuscular Hemoglobin 29.9 pg (29.0-33.0) Mean Corpuscular Hemoglobin Concent 33.6 g/dl (32.0-37.0) Red Cell Distribution Width 18.0 % (11.5-14.5) Platelet Count 305 10^3/UL (140-415) Mean Platelet Volume 10.5 fl (7.4-10.4) Immature Granulocytes % 0.200 % (0.001-0.429) Neutrophils % 54.8 % (39.0-77.0) Lymphocytes % 34.1 % (15.0-51.0) Monocytes % 7.9 % (0.0-11.0) Eosinophils % 2.8 % (0.0-7.0) Basophils % 0.2 % (0.0-2.0) Nucleated Red Blood Cells % 0.0 /100WBC (0.0-0.0) Immature Granulocytes # 0.020 10^3/ul (0.0-0.031) Neutrophils # 4.7 10^3/ul (1.6-7.5) Lymphocytes # 2.9 10^3/ul (0.8-2.9) Monocytes # 0.7 10^3/ul (0.3-0.9) Eosinophils # 0.2 10^3/ul (0.0-0.5) Basophils # 0.0 10^3/ul (0.0-0.1) Nucleated Red Blood Cells # 0.0 10^3/ul (0.0-0.0) Sodium Level 140 mmol/L (135-144) Potassium Level 3.4 mmol/L (3.5-5.1) Chloride Level 99 mmol/L (97-110) Carbon Dioxide Level 32 mmol/L (21-31) Anion Gap 9 (5-13) Blood Urea Nitrogen 25 mg/dl (7-20) Creatinine 0.54 mg/dl (0.44-1.00) Est Glomerular Filtrat Rate mL/min > 60 mL/min (>60) Glucose Level 179 mg/dl (70-220) Calcium Level 9.2 mg/dl (8.4-10.2) MARI ESPITIA Dec 28, 2018 12:32
[2018-12-28] MEDS ORDERED: POTASSIUM CHLORIDE 20 MEQ POWDER FOR ORAL SOLN GTB ONE (13:30)
[2018-12-28] MEDS: MAGNESIUM HYDROXIDE 30ML CUP GTB SCH (17:37)
[2018-12-28] MEDS: ATORVASTATIN 80 MG TAB GTB SCH (20:36)
[2018-12-29] VITALS (12 sets, daily range): BP systolic 102–120; BP diastolic 55–65; PULSE 99–111; RESP 16–20
[2018-12-29] MEDS: PIPER-TAZO 3.375 GM IV (PMX) 100 ML IVPB SCH ×4 (06:06→23:37)
[2018-12-29] MEDS: FOLIC ACID 1 MG TAB PO SCH (09:02)
[2018-12-29] MEDS: ASPIRIN 81 MG TAB PO SCH (09:02)
[2018-12-29] MEDS: LISINOPRIL 5 MG TAB GTB SCH (09:03)
[2018-12-29] MEDS: ZINC SULFATE 220 MG CAP GTB SCH (09:03)
[2018-12-29] MEDS: FUROSEMIDE 20 MG TAB GTB SCH ×2 (09:03→19:44)
[2018-12-29] MEDS: ASCORBIC ACID 500 MG TAB GTB SCH (09:03)
[2018-12-29] MEDS: FAMOTIDINE 20 MG TAB GTB SCH (09:03)
[2018-12-29] MEDS: ALLOPURINOL 100 MG TAB GTB SCH ×2 (09:03→19:44)
[2018-12-29] MEDS: MULTIVITAMINS THERAPEUTIC TAB PO SCH (09:03)
[2018-12-29] MEDS ORDERED: DAKINS 0.0125%(1/40) 473 ML SOLUTION TP SCH (09:09)
[2018-12-29] MEDS: HEPARIN 5,000 UNIT/1 ML VIAL SC SCH ×2 (09:11→19:58)
--- NOTE | 2018-12-29 09:23 | PN ---
Date/Time of Note Date/Time of Note DATE: 12/29/18 TIME: 09:20 Assessment/Plan VTE Prophylaxis Risk score (from Ns)>0 risk: 5 SCD applied (from [facility] [place]): No SCD contraindicated: other Pharmacological prophylaxis: heparin Lines/Catheters IV Catheter Type (from [facility]): Peripheral IV Reason Cath still needed: urinary retention Assessment/Plan Hospital Course S: Patient not able to be sent to nursing facility yesterday because insurance issue still present, window caser working on this. Otherwise no acute events overnight. Tolerating G-tube feeds. O: VS- see below PHYSICAL EXAMINATION: GENERAL: lying in bed, verbally responsive. HEENT: Pupils are equal, round and reactive to light. Extraocular muscles intact. NECK: Supple, no thyromegaly. LUNGS: Clear to auscultation bilaterally. CARDIOVASCULAR: S1, S2 heard. No rubs or gallops. ABDOMEN: Soft, nontender and nondistended. G-tube in place. Normal bowel sounds. No rebound or guarding. MUSCULOSKELETAL: No lower extremity edema bilaterally. NEUROLOGIC: She has got left-sided hemiparesis secondary to her stroke in the past. GENITOURINARY: + stage IV sacral decubitus ulcer. No drainage. 2D echo December 26, 2018: Conclusions: Normal left ventricular cavity size. Sigmoid septum. Mild left ventricular systolic dysfunction. Ejection fraction is visually estimated at 45 %. 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 Moderate posterior mitral annular calcification. Mild to moderate eccentric mitral valve regurgitation. Estimated peak PA systolic pressure 18 mmHg. Normal size and normal respiratory collapse consistent with normal right atrial pressure. ASSESSMENT AND PLAN: 63-year-old female coming in with stage IV decubitus buttock ulcer that needs wound treatment, positive urinary tract infection, and possible signs of ST elevation myocardial infarction. 1. Positive sacral decubitus ulcer-no drainage was noted on admission. Appreciate wound care nurse consult recommendations. White blood cell count normal, no fevers -Continue zinc, multivitamin, folic acid, vitamin C -Per surgery team kourtney nue wound care and no surgical intervention at this time - Continue broad spectrum antibiotics for now. - Continue broad spectrum antibiotics, Tylenol p.r.n. pain and fevers. 2. Urinary tract infection: + UA found on admission. Urine culture positive for Klebsiella grade 100,000 colony-forming - Again, we will continue broad spectrum antibiotics, low-dose IV fluids, Tylenol p.r.n. pain and fevers. 3. Possible non- ST elevation myocardial infarction-appreciate cardiology consult, patient denied chest pain, had been treated earlier with Lovenox 1 mg/kg. No chest pain. -Continue cardiac medications as ordered by cardiology team EDGAR inhibitor, digoxin, beta-maureen, Lipitor, Lasix 4. History of diabetes- A1c = 6.5. Sugar stable - continue sliding scale insulin. 5. History of hypertension. Blood pressure stable. - Continue current blood pressure medications. 6. History of high cholesterol. - Continue statin. 7. Significant CVA: This occurred approximately 1 month ago with residual left- sided weakness symptoms that are still present -Monitor, continue PT, statin 8. GI prophylaxis- Pepcid via G-tube. Dispo: Likely back to [facility] facility in 24 hours once window caser has sorted out the insurance issues and acceptance has been obtained. Result Diagram: 12/29/18 0455 12/29/18 0455 Results 24hrs Laboratory Tests Test 12/29/18 04:55 White Blood Count 9.2 Red Blood Count 3.17 L Hemoglobin 9.3 L Hematocrit 28.8 L Mean Corpuscular Volume 90.9 Mean Corpuscular Hemoglobin 29.3 Mean Corpuscular Hemoglobin Concent 32.3 Red Cell Distribution Width 18.2 H Platelet Count 333 Mean Platelet Volume 10.5 H Immature Granulocytes % 0.500 H Neutrophils % 57.8 Lymphocytes % 28.8 Monocytes % 9.0 Eosinophils % 3.5 Basophils % 0.4 Nucleated Red Blood Cells % 0.0 Immature Granulocytes # 0.050 H Neutrophils # 5.3 Lymphocytes # 2.7 Monocytes # 0.8 Eosinophils # 0.3 Basophils # 0.0 Nucleated Red Blood Cells # 0.0 Sodium Level 141 Potassium Level 3.8 Chloride Level 100 Carbon Dioxide Level 32 H Anion Gap 9 Blood Urea Nitrogen 28 H Creatinine 0.60 Est Glomerular Filtrat Rate mL/min > 60 Glucose Level 166 Calcium Level 9.5 Exam/Review of Systems Exam Vitals Vital Signs Date Temp Pulse Resp B/P (MAP) Pulse Ox O2 O2 Flow FiO2 Time Delivery Rate 12/29/18 104 08:11 12/29/18 97.7 18 120/65 97 07:30 (83) 12/29/18 2.0 05:44 12/26/18 Nasal 11:14 Cannula Intake and Output 12/28/18 12/28/18 12/29/18 1515:00 23:00 07:00 IntakeIntake Total 930 ml 1120 ml OutputOutput Total 1050 ml 1200 ml BalanceBalance -120 ml -80 ml Results Results 24hrs Laboratory Tests Test 12/29/18 04:55 White Blood Count 9.2 Red Blood Count 3.17 L Hemoglobin 9.3 L Hematocrit 28.8 L Mean Corpuscular Volume 90.9 Mean Corpuscular Hemoglobin 29.3 Mean Corpuscular Hemoglobin Concent 32.3 Red Cell Distribution Width 18.2 H Platelet Count 333 Mean Platelet Volume 10.5 H Immature Granulocytes % 0.500 H Neutrophils % 57.8 Lymphocytes % 28.8 Monocytes % 9.0 Eosinophils % 3.5 Basophils % 0.4 Nucleated Red Blood Cells % 0.0 Immature Granulocytes # 0.050 H Neutrophils # 5.3 Lymphocytes # 2.7 Monocytes # 0.8 Eosinophils # 0.3 Basophils # 0.0 Nucleated Red Blood Cells # 0.0 Sodium Level 141 Potassium Level 3.8 Chloride Level 100 Carbon Dioxide Level 32 H Anion Gap 9 Blood Urea Nitrogen 28 H Creatinine 0.60 Est Glomerular Filtrat Rate mL/min > 60 Glucose Level 166 Calcium Level 9.5 Medications Medication Current Medications IV Flush (NS 3 ml) 3 ml PER PROTOCOL IV ; Start 12/25/18 at 18:30 Ondansetron HCl (Zofran Inj) 4 mg Q6H PRN IV NAUSEA/VOMITING; Start 12/25/18 at 18:30 Acetaminophen (Tylenol Tab) 650 mg Q6H PRN PO .PAIN 1-3 OR TEMP; Start 12/25/18 at 18:30 Acetaminophen/ Hydrocodone Bitart ([place] (5/325)) 1 tab Q6H PRN PO .MOD PAIN 4- 6 Last administered on 12/25/18at 19:35; Admin Dose 1 TAB; Start 12/25/18 at 18:30 Morphine Sulfate (morphine) 2 mg Q4H PRN IV .SEVERE PAIN 7-10; Start 12/25/18 at 18:30 Docusate Sodium (Colace) 100 mg Q12H PRN PO .CONSTIPATION; Start 12/25/18 at 18:30 Magnesium Hydroxide (Milk Of Mag) 30 ml DAILY PRN PO .CONSTIPATION; Start 12/25/18 at 18:30 Lorazepam (Ativan) 0.5 mg Q6H PRN IV ANXIETY; Start 12/25/18 at 18:30 Albuterol/ Ipratropium (Duoneb) 3 ml Q4H RESP THERAPY PRN HHN SHORTNESS OF BREATH; Start 12/25/18 at 18:30 Piperacillin Sod/ Tazobactam Sod 100 ml @ 200 mls/hr Q6 IVPB Last administered on 12/29/18at 06:06; Admin Dose 200 MLS/HR; Start 12/26/18 at 00:00 Hydralazine HCl (Apresoline) 10 mg Q6H PRN IV ELEVATED BLOOD PRESSURE; Start 12/25/18 at 18:30 Nitroglycerin (Nitroglycerin (Sl Tab) 0.4 Mg) 1 tab Q5M PRN SL ANGINA; Start 12/25/18 at 18:30 Acetaminophen (Tylenol Liquid) 650 mg Q4H PRN GTB PAIN LEVEL 1-5; Start 12/25/18 at 18:30 Allopurinol (Zyloprim) 100 mg BID GTB Last administered on 12/29/18 09:03; Admin Dose 100 MG; Start 12/25/18 at 21:00 Atorvastatin Calcium (Lipitor) 80 mg QHS GTB Last administered on 12/28/18 20:36; Admin Dose 80 MG; Start 12/25/18 at 21:00 Carvedilol (Coreg) 6.25 mg BID GTB Last administered on 12/29/18 09:03; Admin Dose 6.25 MG; Start 12/25/18 at 21:00 Digoxin (Digoxin) 0.125 mg DAILY@1300 GTB Last administered on 12/28/18 12:08; Admin Dose 0.125 MG; Start 12/26/18 at 13:00 Famotidine (Pepcid) 20 mg QAM GTB Last administered on 12/29/18 09:03; Admin Dose 20 MG; Start 12/26/18 at 09:00 Furosemide (Lasix) 20 mg BID GTB Last administered on 12/29/18 09:03; Admin Dose 20 MG; Start 12/25/18 at 21:00 Lisinopril (Zestril) 5 mg DAILY GTB Last administered on 12/29/18 09:03; Admin Dose 5 MG; Start 12/26/18 at 09:00 Magnesium Hydroxide (Milk Of Mag) 30 ml Q24H GTB Last administered on 12/27/18 18:15; Admin Dose 30 ML; Start 12/25/18 at 18:30 Ascorbic Acid (Vitamin C) 500 mg DAILY GTB Last administered on 12/29/18 09:03; Admin Dose 500 MG; Start 12/26/18 at 10:00 Aspirin (Aspirin) 81 mg DAILY PO Last administered on 12/29/18 09:02; Admin Dose 81 MG; Start 12/27/18 at 09:00 Zinc Sulfate (Zinc Sulfate) 220 mg DAILY GTB Last administered on 12/29/18 09:03; Admin Dose 220 MG; Start 12/27/18 at 10:30 Multivitamins Therapeutic (Theragran) 1 tab DAILY PO Last administered on 12/29/18 09:03; Admin Dose 1 TAB; Start 12/27/18 at 10:30 Folic Acid (Folic Acid) 1 mg DAILY PO Last administered on 12/29/18 09:02; Admin Dose 1 MG; Start 12/27/18 at 10:30 Heparin Sodium (Porcine) (Heparin (5000 Units/1ml)) 5,000 unit BID SC Last administered on 12/29/18 09:11; Admin Dose 5,000 UNIT; Start 12/27/18 at 21:00 Sodium Hypochlorite (Dakins Diluted (/40)) 1 applic BID TP ; Start 12/29/18 at 09:09 MARI ESPITIA Dec 29, 2018 09:23
[2018-12-29] MEDS: SODIUM HYPOCHLORITE (1/40) 1 LITER BTL TOP SCH ×2 (11:41→19:59)
--- NOTE | 2018-12-29 11:43 | CONS ---
Assessment/Plan Assessment/Plan Hospital Course (Demo Recall) NSTEMI: EKG showed q waves and inferior ST elevations which are from an old [place] and aneurysmal changes. Trop peaked at 0.28 and is not consistent with ACS in setting of lack of symptoms. Possible type II from underlying CAD and infections etiologies. Not a cardiac cath candidate at this time. 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 Euvolemic on exam h/o CVA with left hemiparesis DM HTN -ASA -lipitor 80mg -coreg 6.25mg BID -digoxin 125mcg daily (?for cardiomyopathy vs afib but pt in sinus) -lisinopril 5mg -lasix 20mg PO BID -antibiotics, would care Ok for d/c from my perspective. Will see PRN Consultation Date/Type/Reason Admit Date/Time Dec 25, 2018 at 18:05 Initial Consult Date 12/26/18 Type of Consult Cardiology Requesting Provider: MARI ESPITIA Date/Time of Note DATE: 12/29/18 TIME: 11:42 24 HR Interval Summary Free Text/Dictation No events. Awaiting SNF d/c Exam/Review of Systems Vital Signs Vitals Vital Signs Date Temp Pulse Resp B/P (MAP) Pulse Ox O2 O2 Flow FiO2 Time Delivery Rate 12/29/18 98.3 99 18 107/61 97 11:22 (76) 12/29/18 2.0 09:00 12/26/18 Nasal 11:14 Cannula Intake and Output 12/28/18 12/28/18 12/29/18 1515:00 23:00 07:00 IntakeIntake Total 930 ml 1120 ml OutputOutput Total 1050 ml 1200 ml BalanceBalance -120 ml -80 ml Exam Constitutional: alert Psych: no complaints Neck: No jvd Respiratory: diminished breath sounds; No clear to auscultation Cardiovascular: regular rate and rhythm; No edema Gastrointestinal: soft; No distended Neurological: nl mental status; No nl speech Labs Result Diagram: 12/29/18 0455 12/29/18 0455 Results 24hrs Laboratory Tests Test 12/29/18 04:55 White Blood Count 9.2 Red Blood Count 3.17 L Hemoglobin 9.3 L Hematocrit 28.8 L Mean Corpuscular Volume 90.9 Mean Corpuscular Hemoglobin 29.3 Mean Corpuscular Hemoglobin Concent 32.3 Red Cell Distribution Width 18.2 H Platelet Count 333 Mean Platelet Volume 10.5 H Immature Granulocytes % 0.500 H Neutrophils % 57.8 Lymphocytes % 28.8 Monocytes % 9.0 Eosinophils % 3.5 Basophils % 0.4 Nucleated Red Blood Cells % 0.0 Immature Granulocytes # 0.050 H Neutrophils # 5.3 Lymphocytes # 2.7 Monocytes # 0.8 Eosinophils # 0.3 Basophils # 0.0 Nucleated Red Blood Cells # 0.0 Sodium Level 141 Potassium Level 3.8 Chloride Level 100 Carbon Dioxide Level 32 H Anion Gap 9 Blood Urea Nitrogen 28 H Creatinine 0.60 Est Glomerular Filtrat Rate mL/min > 60 Glucose Level 166 Calcium Level 9.5 Medications Medications Current Medications IV Flush (NS 3 ml) 3 ml PER PROTOCOL IV ; Start 12/25/18 at 18:30 Ondansetron HCl (Zofran Inj) 4 mg Q6H PRN IV NAUSEA/VOMITING; Start 12/25/18 at 18:30 Acetaminophen (Tylenol Tab) 650 mg Q6H PRN PO .PAIN 1-3 OR TEMP; Start 12/25/18 at 18:30 Acetaminophen/ Hydrocodone Bitart ([place] (5/325)) 1 tab Q6H PRN PO .MOD PAIN 4- 6 Last administered on 12/25/18at 19:35; Admin Dose 1 TAB; Start 12/25/18 at 18:30 Morphine Sulfate (morphine) 2 mg Q4H PRN IV .SEVERE PAIN 7-10; Start 12/25/18 at 18:30 Docusate Sodium (Colace) 100 mg Q12H PRN PO .CONSTIPATION; Start 12/25/18 at 18:30 Magnesium Hydroxide (Milk Of Mag) 30 ml DAILY PRN PO .CONSTIPATION; Start 12/25/18 at 18:30 Lorazepam (Ativan) 0.5 mg Q6H PRN IV ANXIETY; Start 12/25/18 at 18:30 Albuterol/ Ipratropium (Duoneb) 3 ml Q4H RESP THERAPY PRN HHN SHORTNESS OF BREATH; Start 12/25/18 at 18:30 Piperacillin Sod/ Tazobactam Sod 100 ml @ 200 mls/hr Q6 IVPB Last administered on 12/29/18at 11:41; Admin Dose 200 MLS/HR; Start 12/26/18 at 00:00 Hydralazine HCl (Apresoline) 10 mg Q6H PRN IV ELEVATED BLOOD PRESSURE; Start 12/25/18 at 18:30 Nitroglycerin (Nitroglycerin (Sl Tab) 0.4 Mg) 1 tab Q5M PRN SL ANGINA; Start 12/25/18 at 18:30 Acetaminophen (Tylenol Liquid) 650 mg Q4H PRN GTB PAIN LEVEL 1-5; Start 12/25/18 at 18:30 Allopurinol (Zyloprim) 100 mg BID GTB Last administered on 12/29/18 09:03; Admin Dose 100 MG; Start 12/25/18 at 21:00 Atorvastatin Calcium (Lipitor) 80 mg QHS GTB Last administered on 12/28/18 20:36; Admin Dose 80 MG; Start 12/25/18 at 21:00 Carvedilol (Coreg) 6.25 mg BID GTB Last administered on 12/29/18 09:03; Admin Dose 6.25 MG; Start 12/25/18 at 21:00 Digoxin (Digoxin) 0.125 mg DAILY@1300 GTB Last administered on 12/28/18 12:08; Admin Dose 0.125 MG; Start 12/26/18 at 13:00 Famotidine (Pepcid) 20 mg QAM GTB Last administered on 12/29/18 09:03; Admin Dose 20 MG; Start 12/26/18 at 09:00 Furosemide (Lasix) 20 mg BID GTB Last administered on 12/29/18 09:03; Admin Dose 20 MG; Start 12/25/18 at 21:00 Lisinopril (Zestril) 5 mg DAILY GTB Last administered on 12/29/18 09:03; Admin Dose 5 MG; Start 12/26/18 at 09:00 Magnesium Hydroxide (Milk Of Mag) 30 ml Q24H GTB Last administered on 12/27/18 18:15; Admin Dose 30 ML; Start 12/25/18 at 18:30 Ascorbic Acid (Vitamin C) 500 mg DAILY GTB Last administered on 12/29/18 09:03; Admin Dose 500 MG; Start 12/26/18 at 10:00 Aspirin (Aspirin) 81 mg DAILY PO Last administered on 12/29/18 09:02; Admin Dose 81 MG; Start 12/27/18 at 09:00 Zinc Sulfate (Zinc Sulfate) 220 mg DAILY GTB Last administered on 12/29/18 09:03; Admin Dose 220 MG; Start 12/27/18 at 10:30 Multivitamins Therapeutic (Theragran) 1 tab DAILY PO Last administered on 12/29/18 09:03; Admin Dose 1 TAB; Start 12/27/18 at 10:30 Folic Acid (Folic Acid) 1 mg DAILY PO Last administered on 12/29/18 09:02; Admin Dose 1 MG; Start 12/27/18 at 10:30 Heparin Sodium (Porcine) (Heparin (5000 Units/1ml)) 5,000 unit BID SC Last administered on 12/29/18 09:11; Admin Dose 5,000 UNIT; Start 12/27/18 at 21:00 Sodium Hypochlorite (Dakin'S (Dilute )) 1 applic BID TOP Last administered on 12/29/18 11:41; Admin Dose 1 APPLIC; Start 12/29/18 at 09:30 TIMO VELAZQUEZ Dec 29, 2018 11:43
[2018-12-29] MEDS: DIGOXIN 0.125 MG TAB GTB SCH (12:26)
[2018-12-29] MEDS: MAGNESIUM HYDROXIDE 30ML CUP GTB SCH (18:04)
[2018-12-29] MEDS: ATORVASTATIN 80 MG TAB GTB SCH (19:44)
[2018-12-30] VITALS (11 sets, daily range): BP systolic 101–145; BP diastolic 62–85; PULSE 102–109; RESP 20
[2018-12-30] MEDS: PIPER-TAZO 3.375 GM IV (PMX) 100 ML IVPB SCH (05:22)
[2018-12-30] MEDS: ALLOPURINOL 100 MG TAB GTB SCH (09:24)
[2018-12-30] MEDS: FAMOTIDINE 20 MG TAB GTB SCH (09:25)
[2018-12-30] MEDS: ZINC SULFATE 220 MG CAP GTB SCH (09:25)
[2018-12-30] MEDS: FOLIC ACID 1 MG TAB PO SCH (09:25)
[2018-12-30] MEDS: MULTIVITAMINS THERAPEUTIC TAB PO SCH (09:25)
[2018-12-30] MEDS: ASPIRIN 81 MG TAB PO SCH (09:25)
[2018-12-30] MEDS: FUROSEMIDE 20 MG TAB GTB SCH (09:26)
[2018-12-30] MEDS: ASCORBIC ACID 500 MG TAB GTB SCH (09:26)
[2018-12-30] MEDS: LISINOPRIL 5 MG TAB GTB SCH (09:27)
[2018-12-30] MEDS: HEPARIN 5,000 UNIT/1 ML VIAL SC SCH (09:36)
[2018-12-30] MEDS: DIGOXIN 0.125 MG TAB GTB SCH (12:50)
--- NOTE | 2018-12-30 17:02 | DS ---
Date/Time of Note Date/Time of Note DATE: 12/30/18 TIME: 17:00 Discharge Summary Admission/Discharge Info Admit Date/Time Dec 25, 2018 at 18:05 Discharge Date/Time Discharge Diagnosis 1. Positive sacral decubitus ulcer-no drainage was noted on admission. Patient on antibiotics reviewed days, evaluated by wound care nurse and surgery team, no further intervention required other than normal wound care. 2. Urinary tract infection: + UA found on admission. Urine culture positive for Klebsiella grade 100,000 colony-forming units as well as Proteus 100,000 colony-forming units, overall improving 3. Possible non- ST elevation myocardial infarction-appreciate cardiology consult-improving with medical management 4. History of diabetes- A1c = 6.5. Sugar stable 5. History of hypertension. Blood pressure stable. 6. History of high cholesterol. - Continue statin. 7. Significant CVA: This occurred approximately 1 month ago with residual left- sided weakness symptoms that are still present Consults Dr. Bhat, cardiology Dr. Ambriz, infectious disease Hx of Present Illness 63-year-old woman with past medical history based on records of prior stroke with left-sided weakness symptoms, likely high cholesterol, likely hypertension, likely diabetes, history of G-tube placement, who was sent from custodial facility today because of pressure ulcer on her buttocks. Most of the information is obtained from the ER documentation as the patient is unable to provide full HPI at this time. It was noted, however, that the family was concerned the patient was not getting the proper care at the custodial facility and she apparently had been on antibiotics for the pressure ulcer wound in her buttocks, but the wound does not appear to be healing. The patient did describe some positive pain symptoms in her buttock area. No chest pain or shortness of breath. That is the full extent of the review of systems that could be obtained at this time. When the patient arrived, the white blood cell count was normal, but the ESR was elevated at 130. The potassium was a little bit low at 3.4 and patient did receive antibiotics in the ER, the patient also had an EKG performed that showed signs of possible ST elevation myocardial i nfarction and a call was made out to the on-call jd edwards consultant, who recommended medical management at this time as the troponin is negative and the patient does not have any chest pain symptoms. The patient did get a dose of Lovenox 1 mg/kg as well. Hospital Course Patient was admitted and seen by wound nurse, general surgery, and cardiology teams during this hospital stay. Shins sacral decubitus ulcer was continued with wound care, no fevers, white blood cell count was normal. Surgery team felt that the wound overall is healing with appropriate wound care and no surgical intervention was required for this at this time. There was no pus or drainage or discharge noted from the area. Patient was also found with Klebsiella and Proteus UTI, for which she will complete a 7 day course of levofloxacin. Patient also found with non-ST elevation PR and cardiology team saw the patient for that. Recommendation was just to continue medical management. Troponin was trending down by the time of discharge. No chest pain. Patient tolerated G-tube feeds, vital signs are stable. Patient is back at baseline status. She was seen again by speech therapy but had poor tolerance to diet; so NPO will be continued. After getting clearance from the consulting teams because the patient is clinically improved they will be discharged back to custodial facility today in improved condition. See printed medicine reconciliation sheet for full list of discharge medications. Home Meds Reported Medications Insulin Aspart* (Novolog Insulin Pen*) 100 Unit/Ml Soln, 0 SC .SLIDING SCALE AC, EA IF BS 200-250=2 UNITS, 251-300=4 UNITS, 301-350=6 UNITS, 351-400=8 UNITS, 401-450=10 UNITS, 451-500=12 UNITS AND CALL . 12/25/18 Lisinopril* (Zestril*) 5 Mg Tablet, 5 MG GTB DAILY, #30 TAB HOLD FOR SBP<110 OR [place]<60 12/25/18 Vit C-Ascorbate Ca-Ascorb Sod (Vitamin C) 500 Mg/15 Ml Liquid, 5 ML GTB DAILY, ML 12/25/18 Famotidine* (Famotidine*) 20 Mg Tablet, 20 MG GTB QAM, #30 TAB 12/25/18 Hydrocodone/Acetaminophen ([place] 5-325 Tablet) 1 Each Tablet, 1 EACH GTB Q6H PRN for PAIN 6-10/10, TAB 12/25/18 Nitroglycerin* (Nitroglycerin* SL) 0.4 Mg Tab.subl, 0.4 MG SL Q5MIN PRN for CHEST PAIN, BOTTLE 12/25/18 Magnesium Hydroxide* (Milk Of Magnesia*) 400 Mg/5 Ml Oral.susp, 30 ML GTB Q24H for CONSTIPATION, ML 12/25/18 Atorvastatin* (Atorvastatin*) 80 Mg Tablet, 80 MG GTB QHS, #30 TAB 12/25/18 Furosemide* (Lasix*) 20 Mg Tablet, 20 MG GTB BID, TAB 12/25/18 Digoxin* (Digox*) 125 Mcg Tablet, 0.125 MG GTB DAILY, TAB HOLD FOR HR<60 12/25/18 Carvedilol* (Coreg*) 6.25 Mg Tablet, 6.25 MG GTB BID, #60 TAB HOLD FOR SBP<110 OR [place]<60 12/25/18 Docusate Sodium* (Colace*) 100 Mg Capsule, 100 MG GTB Q12H PRN for CONSTIPATION, #30 CAP 12/25/18 Aspirin* (Aspirin* EC) 81 Mg Tablet.dr, 81 MG GTB DAILY, TAB 12/25/18 Allopurinol* (Allopurinol*) 100 Mg Tablet, 100 MG GTB BID, TAB 12/25/18 Acetaminophen* (Acetaminophen* Susp) 325 Mg/10.15 Ml Solution, 20 ML GTB Q4H PRN for PAIN LEVEL 1-5, ML 12/25/18 Primary Care Provider Time spent on discharge: > 30 minutes Pending Labs Laboratory Tests Test 12/30/18 04:33 White Blood Count 10.6 10^3/ul (4.8-10.8) Red Blood Count 3.22 10^6/ul (4.20-5.40) Hemoglobin 9.6 g/dl (12.0-16.0) Hematocrit 29.4 % (37.0-47.0) Mean Corpuscular Volume 91.3 fl (82.0-101.0) Mean Corpuscular Hemoglobin 29.8 pg (29.0-33.0) Mean Corpuscular Hemoglobin Concent 32.7 g/dl (32.0-37.0) Red Cell Distribution Width 18.1 % (11.5-14.5) Platelet Count 339 10^3/UL (140-415) Mean Platelet Volume 10.4 fl (7.4-10.4) Immature Granulocytes % 0.500 % (0.001-0.429) Neutrophils % 58.9 % (39.0-77.0) Lymphocytes % 28.2 % (15.0-51.0) Monocytes % 8.5 % (0.0-11.0) Eosinophils % 3.4 % (0.0-7.0) Basophils % 0.5 % (0.0-2.0) Nucleated Red Blood Cells % 0.0 /100WBC (0.0-0.0) Immature Granulocytes # 0.050 10^3/ul (0.0-0.031) Neutrophils # 6.3 10^3/ul (1.6-7.5) Lymphocytes # 3.0 10^3/ul (0.8-2.9) Monocytes # 0.9 10^3/ul (0.3-0.9) Eosinophils # 0.4 10^3/ul (0.0-0.5) Basophils # 0.1 10^3/ul (0.0-0.1) Nucleated Red Blood Cells # 0.0 10^3/ul (0.0-0.0) Sodium Level 139 mmol/L (135-144) Potassium Level 3.7 mmol/L (3.5-5.1) Chloride Level 99 mmol/L (97-110) Carbon Dioxide Level 28 mmol/L (21-31) Anion Gap 12 (5-13) Blood Urea Nitrogen 26 mg/dl (7-20) Creatinine 0.62 mg/dl (0.44-1.00) Est Glomerular Filtrat Rate mL/min > 60 mL/min (>60) Glucose Level 185 mg/dl (70-220) Calcium Level 9.7 mg/dl (8.4-10.2) PEARL TEJADA MD Dec 30, 2018 17:02
[2018-12-31] MEDS ORDERED: LEVOFLOXACIN 500 MG TAB PO SCH (06:00)
== END 2018-12-30 21:00 | DRG 592 ==
LOC: E/R 15:21 → 6WM 18:05
PROVIDERS: ADMIT Internal Medicine; ATTEND Internal Medicine
DX: L89.154 Pressure ulcer of sacral region, stage 4 (principal); I21.A1 Myocardial infarction type 2; N39.0 Urinary tract infection, site not specified; I69.354 Hemiplegia and hemiparesis following cerebral infarction affecting left non-dominant side; M46.28 Osteomyelitis of vertebra, sacral and sacrococcygeal region; Z93.1 Gastrostomy status; E11.9 Type 2 diabetes mellitus without complications; I10 Essential (primary) hypertension; E78.00 Pure hypercholesterolemia, unspecified; I25.10 Atherosclerotic heart disease of native coronary artery without angina pectoris; I25.5 Ischemic cardiomyopathy; B96.1 Klebsiella pneumoniae [K. pneumoniae] as the cause of diseases classified elsewhere; B95.2 Enterococcus as the cause of diseases classified elsewhere; I25.2 Old myocardial infarction; Z79.4 Long term (current) use of insulin
CPT/HCPCS: 36415; 71045; 80048; 80061; 80162; 81001; 82550; 82553; 83036; 83605; 83735; 84100; 84439; 84443; 84484; 85025; 85610; 85651; 85730; 86140; 87070; 87086; 92610; 93005; 93306; 96372; 96374; 96375; 97110; 97163; 97530; A4310; J0692; J1644; J2543; J3370; J7030

== ENCOUNTER 2019-06-30 17:34 | Inpatient (IN) | payer BC ==
[~2019-06-30] VITALS: Ht 152.4 cm; Wt 50.9 kg
[~2019-06-30 17:34] MED LIST: ACET325S GTB; ALLO100T GTB; ASPI-817 GTB; ATOR-2 GTB; ATOR-2 PO; CARV6.25 GTB; CARV6.2579 GTB; DIGO125T19 GTB; DOCU-144 GTB; FAMO20TA18 GTB; FER325 GTB; FOLI-49 G-TUBE; FURO-110 GTB; GEMF600T8 GTB; HYDR-4011 GTB; Insulin Glargine SC; LISI-313 GTB; LISI-523 GTB; MAGN400O19 GTB; METF-849 GTB; NITR0.4T32 SL; NOVO3I SC; ONDA4TAB8 G-TUBE; VIT500LI GTB
[2019-07-01] VITALS (7 sets, daily range): BP systolic 93–148; BP diastolic 56–75; PULSE 83–102; RESP 16–20; Ht 152.4 cm; Wt 50.9 kg
[2019-07-01] MEDS ORDERED: ACETAMINOPHEN 325 MG TAB PO PRN (03:00)
[2019-07-01] MEDS ORDERED: ALBUTEROL/IPRATROPIUM (NEB) 3 ML AMP HHN PRN (03:00)
[2019-07-01] MEDS ORDERED: ONDANSETRON 4 MG INJ IV PRN (03:00)
[2019-07-01] MEDS ORDERED: NACL 0.9% 3 ML SYG IV SCH (03:00)
[2019-07-01] MEDS: DEXTROSE 5%-0.45% NACL 1,000 ML IV SCH ×2 (04:01→14:24)
[2019-07-01] MEDS ORDERED: INSULIN ASPART [NOVOLOG] 3 ML PEN SC SCH ×2 (06:00→07:55)
[2019-07-01] MEDS: Insulin NOVOLOG SS MODERATE Algorithm(NPO/TPN/ENTERAL FEEDS) SC SCH ×4 (06:05→23:37)
[2019-07-01] MEDS ORDERED: FAMOTIDINE 20 MG INJ IV SCH (09:00)
[2019-07-01] MEDS ORDERED: LISINOPRIL 5 MG TAB GTB SCH (09:00)
[2019-07-01] MEDS: FOLIC ACID 1 MG TAB GTB SCH (09:29)
[2019-07-01] MEDS: ALLOPURINOL 100 MG TAB GTB SCH ×2 (09:29→22:11)
[2019-07-01] MEDS: FAMOTIDINE 20 MG TAB GTB SCH (09:29)
[2019-07-01] MEDS: GEMFIBROZIL 600 MG TAB GTB SCH (09:29)
[2019-07-01] MEDS: FERROUS SULFATE 60 MG/ML 5ML CUP GTB SCH (09:29)
[2019-07-01] MEDS: INSULIN GLARGINE [LANTus] (100 UNITS/ML) SYG SC SCH (09:34)
[2019-07-01] MEDS: DIGOXIN 0.125 MG TAB GTB SCH (12:39)
[2019-07-01] MEDS: ACCU-CHEK XX SCH ×2 (16:40→21:00)
[2019-07-01] MEDS ORDERED: ATORVASTATIN 80 MG TAB GTB SCH (21:00)
[2019-07-01] MEDS: metFORMIN 500 MG TAB GTB SCH (22:12)
[2019-07-02] MEDS ORDERED: ACCU-CHEK XX SCH (02:00)
[2019-07-02 03:53] VITALS: BP 138/59; PULSE 74; RESP 18
[2019-07-02] MEDS: Insulin NOVOLOG SS MODERATE Algorithm(NPO/TPN/ENTERAL FEEDS) SC SCH ×3 (06:23→17:05)
[2019-07-02 07:00] VITALS: BP 142/72; PULSE 117; RESP 20
[2019-07-02] MEDS: ACCU-CHEK XX SCH ×3 (07:25→17:05)
[2019-07-02] MEDS: FERROUS SULFATE 60 MG/ML 5ML CUP GTB SCH (08:28)
[2019-07-02] MEDS: metFORMIN 500 MG TAB GTB SCH ×2 (08:29→13:40)
[2019-07-02] MEDS: GEMFIBROZIL 600 MG TAB GTB SCH (08:29)
[2019-07-02] MEDS: ALLOPURINOL 100 MG TAB GTB SCH (08:29)
[2019-07-02] MEDS: FAMOTIDINE 20 MG TAB GTB SCH (08:29)
[2019-07-02] MEDS: FOLIC ACID 1 MG TAB GTB SCH (08:29)
[2019-07-02] MEDS: INSULIN GLARGINE [LANTus] (100 UNITS/ML) SYG SC SCH (08:36)
[2019-07-02] MEDS ORDERED: LISINOPRIL 5 MG TAB GTB SCH (09:00)
[2019-07-02 11:00] VITALS: BP 109/68; PULSE 105
[2019-07-02] MEDS: DIGOXIN 0.125 MG TAB GTB SCH (13:40)
[2019-07-02 15:31] VITALS: BP 129/68; PULSE 104; RESP 20
== END 2019-07-02 19:00 | DRG 683 ==
LOC: TEL 07-01 00:15
PROVIDERS: ADMIT Internal Medicine; ATTEND Internal Medicine
DX: N17.9 Acute kidney failure, unspecified (principal); I69.954 Hemiplegia and hemiparesis following unspecified cerebrovascular disease affecting left non-dominant side; E46 Unspecified protein-calorie malnutrition; L89.159 Pressure ulcer of sacral region, unspecified stage; E11.22 Type 2 diabetes mellitus with diabetic chronic kidney disease; E11.65 Type 2 diabetes mellitus with hyperglycemia; Z93.1 Gastrostomy status; I12.9 Hypertensive chronic kidney disease with stage 1 through stage 4 chronic kidney disease, or unspecified chronic kidney disease; N18.9 Chronic kidney disease, unspecified; E86.0 Dehydration; E78.5 Hyperlipidemia, unspecified; D64.9 Anemia, unspecified; I25.10 Atherosclerotic heart disease of native coronary artery without angina pectoris; I69.921 Dysphasia following unspecified cerebrovascular disease; I25.2 Old myocardial infarction; Z68.21 Body mass index [BMI] 21.0-21.9, adult; Z79.4 Long term (current) use of insulin; Z79.82 Long term (current) use of aspirin
CPT/HCPCS: 80048; 80053; 80061; 80162; 82962; 83036; 83735; 84100; 85025; 87081; J1815; J7042